=== PATIENT | female | born 1960 | race Caucasian/White ===

== ENCOUNTER 2020-06-27 11:22 | Outpatient (CLI) | payer OTHER, SELFPAY ==
--- NOTE | ~2020-06-27 | XR_ITS ---
XR lumbar spine 2-3V DATE: 06/27/2020 12:05 INDICATION: Back pain TECHNIQUE: AP, lateral, coned lateral lumbosacral views COMPARISON: None FINDINGS: There is moderate loss of height and anterior wedging of L1 due to burst fracture, likely c hronic. Diffuse osteopenia. Grade 1 anterolisthesis at L4-5 due to degenerative change at the apophyseal joints. Moderately severe degenerative disc disease at L5-S1. There is mild degenerative disc disease at the remaining lumbar interspaces. No recent fracture or bone destruction is evident. The included lower thoracic and lumbar pedicles ap pear intact. The sacroiliac joints appear normal. Abdominal aortic calcification. IMPRESSION: Probable chronic burst fracture deformity of L1 Grade 1 anterolisthesis at L4-5 due to degenerative change at the apophyseal joints Degenerative disc disease, most pronounced at L5-S1 Reviewed, dictated and finalized at location B. RECEIVER IMPRESSION: Probable chronic burst fracture deformity of L1 Grade 1 anterolisthesis at L4-5 due to degenerative change at the apophyseal yesi ints Degenerative disc disease, most pronounced at L5-S1
--- NOTE | ~2020-06-27 | XR_ITS ---
XR_CERV2-3V_CR DATE: 06/27/2020 12:05 INDICATION: Neck pain radiating to right shoulder. No known injury. TECHNIQUE: AP, lateral, open-mouth views COMPARISON: None FINDINGS: There is straightening of the cervical spine. C1 and C2 are normally aligned and the odontoid process appears intact. No fracture or dislocation or locked facet or prevertebral soft tissue swelling. There is mild degenerative disease at C4-5. There is severe degenerative disc disease at C5-6 and moderately severe degenerative disc disease at C6-7, with mild retrolisthesis at C6-7. Degenerative changes of apophyseal joints and uncovertebral joints is noted throughout the cervical s pine. IMPRESSION: Straightening of the cervical spine Extensive degenerative changes Reviewed, dictated and finalized at Location A. Reviewed, dictated and finalized at location B. ALS REFEREE
--- NOTE | ~2020-06-27 | XR_ITS ---
XR shoulder RT min 2V DATE: 06/27/2020 12:05 INDICATION: Right shoulder pain TECHNIQUE: 4 views COMPARISON: None FINDINGS: No fracture or dislocation, periosteal reaction or bone destruction or abnormal soft tissue calcification. IMPRESSION: No significant abnormality Reviewed, dictated and finalized at location B. INAL JUSTICE INSTRUCTOR IMPRESSION: No significant abnormality
== END 2020-06-27 11:23 | disposition home or self-care (01) ==
LOC: CHSIMG 11:26
PROVIDERS: PCP Nurse Practitioner Family; Visit Provider Nurse Practitioner Family
DX: M25.511 Pain in right shoulder (principal); M54.9 Dorsalgia, unspecified
CPT/HCPCS: 72040; 72100; 73030

== ENCOUNTER 2020-06-28 11:46 | Outpatient (CLI) | payer OTHER, SELFPAY ==
--- NOTE | ~2020-06-28 | DEXA_ITS ---
Bone Density Report Name: Kesha Garcia Age: 59 Sex: Female Ethnicity: White Date of : 1960 Indication: postmenopausal; screening for osteoporosis; height loss; prior fracture; Referring Provider: Elva Aiken Study: Bone densitometry was performed. Exam Date: June 28, 2020 Accession number: [id number] Bone Density: Region BMD T-score Z-score Classification AP Spine(L1-L4) 1.127 0.7 2.1 Normal Femoral Neck (Left) 0.923 0.7 1.9 Normal Total Hip (Left) 1.057 0.9 1.8 Normal Femoral Neck (Right) 1.000 1.4 2.6 Normal Total Hip (Right) 0.944 0.0 0.9 Normal Femoral Neck Mean 0.962 1.0 2.2 Normal Total Hip Mean 1.000 0.5 1.4 Normal World Health Organization criteria for BMD impression classify patients as: Normal (T-score at or above -1.0), Osteopenia (T-score between -1.0 and -2.5), or Osteoporosis (T-score at or below -2.5). 10-year Fracture Risk: FRAX not reported because: All T-scores for Spine Total, Hip Total, Femoral Neck at or above -1.0 Prior hip or vertebral fracture Clinical Information Provided by Patient: Have had a previous hip or vertebral fracture Has had a low trauma fracture Smokes Has 3 or more alcoholic drinks per day Patient maximum height was 64 Menopause Age: 53 No regular weight bearing exercise Does not regularly consume dairy products Drinks caffeinated beverages Onset of menses at age 13 Number of children 2 Impression: The patient has normal bone mass. The patient has risk factors, including: smoking, excessive alcohol use, previous fracture. Discussion: INCREASED RISK OF FRACTURE DUE TO HISTORY OF FRACTURE. The patient's previous fracture puts the patient at high risk of a future fracture. In untreated patients, the risk of osteoporotic fracture increases approximately two-fold for each 1.0 SD decrease in T-score. Low bone density is not the only risk factor for fracture; also consider factors such as patient's age, frailty or poor health, risk of falling, risk of injury, previous osteoporotic fracture, family history of osteoporosis, cigarette smoking, low body weight, etc. Not everyone with a low trauma fracture has osteoporosis; osteomalacia and other metabolic bone disorders should also be considered. Patients who have osteoporosis should be evaluated for specific diseases and conditions (secondary causes) that may cause or contribute to bone loss and fracture risk. National Osteoporosis Foundation (NOF) recommends pharmacologic intervention for patients with a prior hip or vertebral fracture regardless of BMD T-score. The patient should follow a healthful lifestyle (good nutrition with adequate calcium and vitamin D, and appropriate weight-bearing exercise). Follow-Up: Consider a repeat BMD and Vertebral Fractur
--- NOTE | ~2020-06-28 | US_ITS ---
EXAMINATION: US soft tissue lower back EXAM DATE: 06/28/2020 12:45 INDICATION: R22.2 - Localized swelling, mass and lump, trunk. Lower back lump. Symptoms 2 months TECHNIQUE: Multiple grayscale and Doppler images of the symptomatic low back region were obtained (by a technologist who performed the scan) and subsequently reviewed. There is no prior study for mariann avina. FINDINGS: At the palpable abnormality there is a heterogeneous mass measuring 3.0 x 1.3 x 3.5 cm. This may be w ithin the posterior paraspinal musculature. Most likely a lipoma but CT scan of the region (abdomen?) without contrast recommended. IMPRESSION: Nonspecific soft tissue mass, statistically most likely lipoma but CT recommended. Reviewed, dictated and finalized at location A. IST HELPER IMPRESSION: Nonspecific soft tissue mass, statistically most likely lipoma but CT recommend ed.
[2020-06-28 12:03] LABS: Hematocrit 35.6 % (35.0-49.0); Hemoglobin 12.5 g/dL (12.0-15.0); Mean Corpuscular HGB Conc 35.1 g/dL (32.0-36.0); Mean Corpuscular Hemoglobin 32.6 pg (27.0-31.0); Mean Platelet Volume 10.6 fl (9.2-11.8); Platelet Count Result 336 K/mm3 (150-420); Red Blood Count 3.83 M/mm3 (4.20-5.40); White Blood Count 4.3 K/mm3 (4.8-10.8)
[2020-06-28 12:40] LABS: Alanine Aminotransferase 17 U/L (14-59); Albumin Level 4.6 g/dL (3.4-5.0); Alkaline Phosphatase 85 U/L (46-116); Anion Gap 11 mmol/L (8-16); Aspartate Amino Transferase 13 U/L (15-37); Bilirubin,Total 0.5 mg/dL (0.00-1.00); Blood Urea Nitrogen 9 mg/dL (7-18); Calcium 9.7 mg/dL (8.5-10.1); Carbon Dioxide 27 mmol/L (21-32); Chloride 95 mmol/L (98-108); Cholesterol 264 mg/dL (0-200); Estimated Glomerular Filt Rate > 60; Glucose 105 mg/dL (70-99); HDL Direct 142 mg/dL (40-60); LDL Cholesterol Calculated 112 mg/dL (<130); Osmolality Calculated 274 mOsm/kg (285-295); Potassium 4.2 mmol/L (3.5-5.1); Sodium 133 mmol/L (136-145); Total Protein 7.9 g/dL (6.4-8.2); Triglycerides 50 mg/dL (0-150)
[2020-06-28 12:55] LABS: Band Neutrophils Percent 0 % (0-6); Basophils Absolute Manual 0.04 K/mm3 (0-0.1); Basophils Percent Manual 1 % (0-1); Eosinophils Percent Manual 0 % (1-6); Lymphocytes Absolute Manual 1.11 K/mm3 (1.1-4.5); Lymphocytes Percent Manual 26 % (18-44); Monocytes Absolute Manual 0.47 K/mm3 (0.1-0.90); Monocytes Percent Manual 11 % (3-9); Neutrophils Absolute Manual 2.66 K/mm3 (1.7-7.2); Neutrophils Percent Manual 62 % (46-73); Total Cells Counted 100
[2020-06-28 12:56] LABS: Platelet Estimate Adequate (Adequate)
== END 2020-06-28 11:47 | disposition home or self-care (01) ==
LOC: CHSIMG 11:49
PROVIDERS: PCP Nurse Practitioner Family; Visit Provider Nurse Practitioner Family
DX: R22.2 Localized swelling, mass and lump, trunk (principal); I10 Essential (primary) hypertension; M85.80 Other specified disorders of bone density and structure, unspecified site
CPT/HCPCS: 36415; 76705; 77080; 80053; 80061; 85025

== ENCOUNTER 2021-12-24 10:40 | Outpatient (CLI) | payer BC, SELFPAY ==
[2021-12-24 11:41] LABS: Influenza Control Valid (Valid)
[2021-12-24 12:03] LABS: SARS-CoV-2 RNA PCR Negative (Negative)
== END 2021-12-24 10:41 | disposition home or self-care (01) ==
LOC: CHSLAB 10:42
PROVIDERS: PCP Nurse Practitioner Family; Visit Provider Nurse Practitioner Family
DX: J06.9 Acute upper respiratory infection, unspecified (principal); Z20.822 Contact with and (suspected) exposure to COVID-19
CPT/HCPCS: 36415; 87804; C9803; U0003; U0005

== ENCOUNTER 2022-01-23 12:41 | Inpatient (IN) | payer OTHER, BC, SELFPAY ==
[2022-01-23] VITALS (30 sets, daily range): BP systolic 116–167; BP diastolic 69–118; PULSE 61–94; RESP 11–25; TEMP 36.2–36.4; O2SAT 98–100; BMI 19.5
--- NOTE | ~2022-01-23 | US_ITS ---
EXAMINATION: US carotid duplex BI DATE: 01/24/2022 12:00 INDICATION: Syncope. TECHNIQUE: Grayscale, color Doppler, and pulsed Doppler images of the cervical carotid arteries were obtained. The degree of vessel stenosis is placed in one of the following categories: normal, <50%, 5 0-69%, >=70% but less than near-occlusion, near-occlusion, or total occlusion. Note that percent sten osis relative to normal distal artery lumen diameter is indirectly measured from velocity measurement s as described by Amado, et al. Radiology 2003; 229:340-346. COMPARISON: None. FINDINGS: RIGHT: The right common carotid artery (CCA) peak systolic velocity (PSV) is 86 cm/s. The right internal car otid artery (ICA) PSV is 87 cm/s. The right ICA end-diastolic velocity (EDV) is 27 cm/s. The right IC A/CCA PSV ratio is 1.0. Grayscale and color Doppler images yield an estimate of <50% diameter reducti on from plaque in the ICA. There is antegrade flow in the right vertebral artery. LEFT: The left CCA PSV is 86 cm/s. The left ICA PSV is 90 cm/s. The left ICA EDV is 28 cm/s. The left ICA/C CA PSV ratio is 1.0. Grayscale and color Doppler images yield an estimate of <50% diameter reduction from plaque in the ICA. There is antegrade flow in the left vertebral artery. IMPRESSION: 1. <50% stenosis in the right internal carotid artery. 2. <50% stenosis in the left internal carotid artery. Reviewed, dictated and finalized at location A.
--- NOTE | ~2022-01-23 | CT_ITS ---
EXAMINATION: CT brain wo con DATE: 01/24/2022 15:51 INDICATION: syncope . TECHNIQUE: Computed tomography (CT) of the head was performed without intravenous contrast. The mA wa s adjusted according to patient size. Iterative reconstruction technique was employed. The dose-lengt h product was 605.33 mGy-cm. COMPARISON: None FINDINGS: No acute intracranial hemorrhage or extra-axial fluid collection. No hydrocephalus, mass, or herniation. No acute ischemic infarct. Unremarkable dural venous sinus attenuation. No acute osseous abnormality. Aerated secretions in the left maxillary sinus, as can be seen with acute sinusitis, otherwise the ae rated spaces are clear. Mild atrophy and chronic white matter change. Atherosclerotic intracranial calcification. IMPRESSION: No acute intracranial process. Reviewed, dictated and finalized at location K.
--- NOTE | ~2022-01-23 | XR_ITS ---
EXAMINATION: XR chest 1V portable 01/23/2022 13:21 INDICATION: Syncope PROCEDURE: AP portable chest COMPARISON: No prior studies for comparison. FINDINGS: The lungs are clear. The cardiomediastinal silhouette is within normal limits. There are no pleural effusions. There is no pneumothorax suspected. IMPRESSION: 1: NO ACUTE CARDIOPULMONARY DISEASE. Reviewed, dictated and finalized at location A.
--- NOTE | 2022-01-23 12:43 | ECG_ITS ---
Measurements Intervals [place] Rate: 68 P: 49 PA: 174 QRS: 38 QRSD: 82 T: 17 QT: 408 QTc: 436 Interpretive Statements SINUS RHYTHM NORMAL ELECTROCARDIOGRAM NO PREVIOUS ECG AVAILABLE FOR COMPARISON Electronically Signed On 01-23-2022 16:32:06 CDT by Adrian Lake M.D.
--- NOTE | 2022-01-23 12:54 | ED.GENADULT ---
HPI - General Adult General Chief complaint: Syncope Stated complaint: Syncopal episode Time Seen by Provider: 01/23/22 12:44 History of Present Illness HPI narrative: 61-year-old female with a past medical history of hypertension and GERD presents to the department via EMS after having a syncopal event at work. 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 There is no head or neck trauma. Patient did not experience any confusion upon waking but does state generalized weakness/feeling rundown. Related Data Home Medications Medication Instructions Recorded Confirmed lisinopril 40 mg tablet 40 mg PO DAILY 01/23/22 01/23/22 sertraline 25 mg tablet 25 mg PO HS 01/23/22 01/23/22 Allergies Allergy/AdvReac Type Severity Reaction Status Date / Time No Known Allergies Allergy Unknown Verified 12/24/21 15:07 Review of Systems Review of Systems: CONSTITUTIONAL: Denies fever, chills, or sweats. EYES: Denies visual changes, redness, or discharge. ENT: Denies rhinorrhea, congestion, sore throat, or otalgia. CARDIOVASCULAR: Denies chest pain, palpitations, or edema. RESPIRATORY: Denies cough or dyspnea. GASTROINTESTINAL: Denies abdominal pain, nausea, vomiting, or diarrhea. GENITOURINARY: Denies dysuria or hematuria. SKIN: Denies rash or itching. MUSCULOSKELETAL: Denies back pain, joint pain, or myalgia. NEUROLOGIC: Denies headache, numbness, or weakness. PSYCHIATRIC: Denies anxiety or depression. [facility] Past Medical History Medical History (Updated 01/24/22 @ 14:41 by Yadira Sebastian PA-C) Daily consumption of alcohol Depression Gastroesophageal reflux disease Generalized anxiety disorder Hypertension Nicotine dependence, cigarettes, uncomplicated Surgical History Surgical History No pertinent past surgical history Family History Family History Father Acute myocardial infarction Hypertension Mother Hypertension Sibling Hypertension Social History Social History (Updated 01/24/22 @ 14:42 by Yadira Sebastian PA-C) Social History: Surrogate medical decision maker: Patient does not name a surrogate decision maker at this time. Code status: Full code. Smoking packs per day: 0.75 Smoking cigarettes per day: 15.0 Years smoked: 35 Smoking pack-years: 26.25 Smoking status: Current every day smoker Tobacco type: cigarettes Alcohol intake: current Drinks per week: 35 Alcohol use details: Drinks on average 4 to 5 beers at night. Substance use: never Substance use type: does not use Spiritual care concerns: No Exam Narrative: GENERAL: Well-appearing, well-nourished, and in no acute distress. HEAD: Normocephalic, atraumatic. EYES: PERRLA and EOMI. ENT: Nares clear, no rhinorrhea or epistaxis. Mucous membranes dry. NECK: Supple. CHEST: Clear to auscultation. No respiratory distress. HEART: Regular rate and rhythm. No murmur heard. Normal peripheral pulses. ABDOMEN: Soft, nontender, nondistended, normal active bowel sounds. EXTREMITIES: Normal range of motion. No edema. SKIN: Warm, dry, no rash. NEURO: No focal deficits. Alert and oriented x3. PSYCH: Normal mood and affect. Course Vital Signs Vital signs: Vital Signs Temperature 97.2 F L 01/23/22 12:44 Pulse Rate 68 01/23/22 12:44 Respiratory Rate 14 01/23/22 12:44 Pulse Oximetry 100 01/23/22 12:44 Temperature 96.5 F L 01/26/22 14:00 Pulse Rate 79 01/26/22 14:00 Respiratory Rate 18 01/26/22 14:00 Blood Pressure 141/85 H 01/26/22 14:00 Pulse Oximetry 100 01/26/22 14:00 Oxygen Delivery Room Air 01/26/22 08:00 Medical Decision Making MDM Narrative Medical decision making narrative: Labs remarkable for hyponatremia with a sodi
[2022-01-23 13:06] LABS: Basophils Percent Auto 0.4 % (0.2-1.2); Eosinophils Percent Auto 0.1 % (0-4.4); Hematocrit 28.1 % (37.0-47.0); Immature Granulocyte Absolute 0.04 K/mm3 (0.00-0.031); Immature Granulocyte Percent A 0.6 % (0-0.5); Lymphocytes Percent Auto 8.5 % (18.3-44.2); Mean Corpuscular HGB Conc 35.6 g/dl (32-36); Mean Corpuscular Hemoglobin 32.5 pg (26-34); Mean Corpuscular Volume 91.2 fl (80-100); Mean Platelet Volume 9.7 fl (7.4-10.4); Monocytes Absolute Auto 0.6 K/mm3 (0.1-0.6); Monocytes Percent Auto 8.1 % (2.6-8.5); Neutrophils Absolute Auto 5.8 K/mm3 (1.3-6.7); Neutrophils Percent Auto 82.3 % (45.5-73.1); Platelet Count Result 348 k/mm3 (150-375); Red Blood Count 3.08 M/mm3 (4.2-5.4); Red Cell Distribution Width 13.2 % (11.5-14.5)
[2022-01-23 13:10] LABS: Alanine Aminotransferase 18 U/L (6-35); Albumin Level 4.9 g/dL (3.5-5.1); Alkaline Phosphatase 77 U/L (38-126); Anion Gap 12 mmol/L (8-16); Aspartate Amino Transferase 32 U/L (14-36); Bilirubin,Total 0.6 mg/dL (0.2-1.3); Blood Urea Nitrogen 18 mg/dL (7-17); Calcium 8.8 mg/dL (8.4-10.2); Carbon Dioxide 20 mmol/L (22-30); Chloride 85 mmol/L (98-107); Estimated CRCL calculation 41 ml/min; Estimated Glomerular Filt Rate 51; Glucose 162 mg/dL (65-110); Potassium 3.9 mmol/L (3.4-5.0); Sodium 117 mmol/L (137-145)
[2022-01-23] MEDS: SODIUM CHLORIDE 0.9% IV 1,000 ML 999 ML IV CONT (13:17)
[2022-01-23 14:46] LABS: SARS-CoV-2 RNA PCR Negative
--- NOTE | 2022-01-23 15:00 | PM.IMHP ---
H&P: HPI History of Present Illness Date/Time: 01/23/22 15:00 Chief Complaint: Syncope. Narrative: This is a 61-year-old female smoker with hypertension, GERD, anxiety, and daily alcohol use who presented to the emergency department via EMS from work for evaluation after syncopal episode. For the last few days she has been feeling a bit weak, tired, and lightheaded/dizzy upon standing. Her appetite has also been poor for about the last 1 week with nausea but no vomiting. Today while at work she began to feel nauseated, lightheaded, and sweaty. Her boss was nearby and slowly lowered her to the ground where she had a brief loss of consciousness. On arrival to the emergency department she was found to be profoundly hyponatremic with a sodium of 117 and a BUN and creatinine of 18 and 1.10 respectively. She was given a L of normal saline as a bolus and repeat labs demonstrated normalization of her creatinine and a sodium of 120. She has not had any recent change in medications but she is on hydrochlorothiazide and sertraline at home though she has taken those medications for many years. She admits that she does not eat very well, typically forgoing breakfast and lunch and only eating dinner. She drinks about 4 to 5 beers with dinner as well. Review of Systems Review of Systems: Twelve systems were reviewed. No recent cold or flu symptoms. No sick contacts. Weight has remained stable. No history of malignancy. She denies chest and pleuritic pain. No palpitations or sense of racing heart. No shortness of breath. Except as documented, all other systems were reviewed and are negative. [facility] Past Medical History Medical History (Updated 01/24/22 @ 14:41 by Yadira Sebastian PA-C) Daily consumption of alcohol Depression Gastroesophageal reflux disease Generalized anxiety disorder Hypertension Nicotine dependence, cigarettes, uncomplicated Surgical History Surgical History No pertinent past surgical history Family History Family History Father Acute myocardial infarction Hypertension Mother Hypertension Sibling Hypertension Social History Social History (Updated 01/24/22 @ 14:42 by Yadira Sebastian PA-C) Social History: Surrogate medical decision maker: Patient does not name a surrogate decision maker at this time. Code status: Full code. Smoking packs per day: 0.75 Smoking cigarettes per day: 15.0 Years smoked: 35 Smoking pack-years: 26.25 Smoking status: Current every day smoker Tobacco type: cigarettes Alcohol intake: current Drinks per week: 35 Alcohol use details: Drinks on average 4 to 5 beers at night. Substance use: never Substance use type: does not use Spiritual care concerns: No Meds Home Medications and Allergies Home Medications Medication Instructions Recorded Confirmed Type diclofenac sodium 50 mg 50 mg PO TID PRN pain #60 tabs 10/09/21 01/23/22 Rx tablet,delayed release omeprazole 40 mg capsule,delayed 40 mg PO BID #60 caps 01/21/22 01/23/22 Rx release famotidine 20 mg tablet 20 mg PO DAILY PRN gerd #30 tabs 01/22/22 01/23/22 Rx cyclobenzaprine 10 mg tablet 10 mg PO HS PRN muscle spasm 01/23/22 01/23/22 History hydrochlorothiazide 12.5 mg capsule 12.5 mg PO DAILY 01/23/22 01/23/22 History lisinopril 40 mg tablet 40 mg PO DAILY 01/23/22 01/23/22 History sertraline 25 mg tablet 25 mg PO HS 01/23/22 01/23/22 History Allergies Allergy/AdvReac Type Severity Reaction Status Date / Time No Known Allergies Allergy Unknown Verified 12/24/21 15:07 Vital Signs Vital Signs - 24 hr 01/23/22 12:44 01/23/22 12:46 01/23/22 13:04 Temperature 97.2 F L Pulse Rate 68 69 79 Respiratory Rate 14 Blood Pressure 116/69 Pulse Oximetry 100 Oxygen Delivery 01/23/22 13:04 01/23/22 13:06 01/23/22 13:22 Temperature Pulse Rate 79 90
--- NOTE | 2022-01-23 15:54 | ADMGEN ---
This patient, Kesha Garcia, was admitted to IMU Room 206-01. Patient/family oriented to hospital policies and general routines including ID bracelet, bed and alarms, visiting hours, pain management, procedures, bathroom and other care routines, personal items, smoking policy, room service/diet, and visiting hours. Information on how to activate the Rapid Response Team has been discussed. Patient/Family are encouraged to report perceived risks to care and to ask questions if they do not understand what they are told or what they should do.
[2022-01-23 16:06] LABS: Sodium Urine Random 82 meq/L
[2022-01-23 16:23] LABS: Basophils Percent Auto 0.3 % (0.2-1.2); Hematocrit 27.1 % (37.0-47.0); Hemoglobin 9.5 g/dL (12.0-15.0); Immature Granulocyte Absolute 0.07 K/mm3 (0.00-0.031); Immature Granulocyte Percent A 0.6 % (0-0.5); Lymphocytes Absolute Auto 0.58 K/mm3 (0.9-3.2); Lymphocytes Percent Auto 5.2 % (18.3-44.2); Mean Corpuscular HGB Conc 35.1 g/dl (32-36); Mean Corpuscular Hemoglobin 32.4 pg (26-34); Mean Corpuscular Volume 92.5 fl (80-100); Mean Platelet Volume 9.5 fl (7.4-10.4); Monocytes Absolute Auto 0.6 K/mm3 (0.1-0.6); Monocytes Percent Auto 5.8 % (2.6-8.5); Neutrophils Absolute Auto 9.8 K/mm3 (1.3-6.7); Neutrophils Percent Auto 88.1 % (45.5-73.1); Platelet Count Result 335 k/mm3 (150-375); Red Blood Count 2.93 M/mm3 (4.2-5.4); Red Cell Distribution Width 13.2 % (11.5-14.5); White Blood Count 11.1 K/mm3 (4.5-10.0)
[2022-01-23 16:34] LABS: Anion Gap 11 mmol/L (8-16); Blood Urea Nitrogen 17 mg/dL (7-17); Calcium 8.9 mg/dL (8.4-10.2); Carbon Dioxide 20 mmol/L (22-30); Chloride 89 mmol/L (98-107); Estimated CRCL calculation 46 ml/min; Estimated Glomerular Filt Rate > 60; Glucose 116 mg/dL (65-110); Potassium 4.3 mmol/L (3.4-5.0); Sodium 120 mmol/L (137-145)
[2022-01-23 16:36] LABS: Magnesium 1.8 mg/dL (1.6-2.3)
[2022-01-23 16:41] LABS: NT Pro B Type Natriuretic Pept 92 pg/mL (5-100); Troponin I < 0.012 ng/mL (0.000-0.034)
[2022-01-23 17:25] LABS: Thyroid Stimulating Hormone Reflex 0.847 uIU/mL (0.465-4.68)
[2022-01-23 21:00] LABS: Glucose Point of Care 120 mg/dl (65-105)
[2022-01-23 21:28] LABS: Sodium 124 mmol/L (137-145)
[2022-01-24] VITALS (19 sets, daily range): BP systolic 101–189; BP diastolic 62–92; PULSE 57–88; RESP 16–20; TEMP 36.3–36.9; O2SAT 98–100
[2022-01-24 01:16] LABS: Sodium 123 mmol/L (137-145)
[2022-01-24] MEDS: SERTRALINE HCL 25 MG TABLET PO ×2 (01:19→20:02)
[2022-01-24] MEDS: CYCLOBENZAPRINE HCL 10 MG TABLET PO ×2 (01:20→20:04)
[2022-01-24 01:41] LABS: Iron 71 ug/dL (37-170)
[2022-01-24 01:50] LABS: Percent Iron Saturation 25 % (20-50)
[2022-01-24 02:14] LABS: Thyroid Stimulating Hormone Reflex 0.825 uIU/mL (0.465-4.68)
[2022-01-24 02:48] LABS: Folic Acid 9.8 ng/mL (2.76->20)
[2022-01-24 05:04] LABS: Hematocrit 25.8 % (37.0-47.0); Mean Corpuscular HGB Conc 34.9 g/dl (32-36); Mean Corpuscular Hemoglobin 32.3 pg (26-34); Mean Corpuscular Volume 92.5 fl (80-100); Platelet Count Result 330 k/mm3 (150-375); Red Blood Count 2.79 M/mm3 (4.2-5.4); Red Cell Distribution Width 13.4 % (11.5-14.5); White Blood Count 4.7 K/mm3 (4.5-10.0)
[2022-01-24 05:16] LABS: Anion Gap 11 mmol/L (8-16); Blood Urea Nitrogen 17 mg/dL (7-17); Calcium 8.8 mg/dL (8.4-10.2); Carbon Dioxide 24 mmol/L (22-30); Chloride 93 mmol/L (98-107); Estimated CRCL calculation 51 ml/min; Estimated Glomerular Filt Rate > 60; Glucose 101 mg/dL (65-110); Magnesium 1.9 mg/dL (1.6-2.3); Potassium 3.8 mmol/L (3.4-5.0); Sodium 128 mmol/L (137-145)
[2022-01-24] MEDS: lisinopriL 20 MG TABLET 40 MG PO (09:36)
[2022-01-24] MEDS: PANTOPRAZOLE 40 MG TABLET PO ×2 (09:36→20:02)
[2022-01-24 10:10] LABS: Sodium 126 mmol/L (137-145)
[2022-01-24] MEDS: FAMOTIDINE 20 MG TABLET PO (10:18)
--- NOTE | 2022-01-24 10:59 | PM.IMPN ---
Progress Note: A&P Assessment and Plan (1) Hyponatremia: Code(s): E87.1 - Hypo-osmolality and hyponatremia Status: Acute Assessment and Plan: Likely due to a combination of low solute intake, beer potomania, and thiazide diuretic use. Sodium has improved after receiving 1 L of normal saline and she appears euvolemic at this time and we will schedule no further fluids. I do not feel there is a need to fluid restrict given improvements in sodium. Hydrochlorothiazide will be discontinued. I will continue with sertraline as she has been on that for many years. (2) Syncopal episodes: Code(s): R55 - Syncope and collapse Status: Acute Assessment and Plan: I suspect she was probably orthostatic and we will check orthostatic vital signs Q shift. Initiate fall precautions. Monitor on telemetry overnight to rule out cardiac dysrhythmia. (3) Daily consumption of alcohol: Code(s): Z78.9 - Other specified health status Status: Acute Assessment and Plan: She denies ever having signs or symptoms of alcohol withdrawal. Monitor closely with [place]. (4) Anemia: Code(s): D64.9 - Anemia, unspecified Status: Acute Assessment and Plan: May be nutritional. Check iron studies. Additional Plan 01/24/2022 Sodium is still low. Will consult Nephrology. Plan is to continue to monitor patient very closely. Repeat labs in the morning. Subjective Date/time seen: 01/24/22 10:59 Patient was seen during the morning rounds today. Patient is slightly more alert. Denies any shortness of breath or chest pain. No passing out. No abdominal pain, no nausea, no vomiting. Mood stable. Review of Systems Review of Systems: All systems reviewed & are unremarkable except as noted in HPI and below (the history and physical exam.) Exam Narrative: General: Well-developed female sitting up in bed in no distress. Weight: 50 kg. BMI: 19.5. HEENT: PERRL, EOMI. Conjunctivae anicteric. Oral mucosa is moist. Neck: Supple. No obvious thyromegaly. Respiratory: Lungs are clear to auscultation bilaterally. Cardiovascular: Regular rate and rhythm with S1-S2. Gastrointestinal: Abdomen is soft, nontender, and nondistended with positive bowel sounds. No organomegaly. Skin: Warm and dry. No rash or lesions on limited exam. Extremities: No cyanosis, clubbing, or edema. Radial and pedal pulses intact. Neurological: Alert. Cranial nerves 2-12 are grossly intact. No gross focal deficits to casual conversation. Psychiatric: Pleasant and cooperative. Appropriate mood and affect. Objective Data Vital Signs Vital Signs: Vital Signs - 24 hr 01/23/22 12:44 01/23/22 12:46 01/23/22 13:04 Temperature 36.2 C L Pulse Rate 68 69 79 Pulse Rate [Bilateral Pedal (Dorsalis Pedis) Palpation] Pulse Rate [Monitor] Respiratory Rate 14 Blood Pressure 116/69 Pulse Oximetry 100 Oxygen Delivery 01/23/22 13:04 01/23/22 13:06 01/23/22 13:22 Temperature Pulse Rate 79 90 Pulse Rate [Bilateral Pedal (Dorsalis Pedis) Palpation] Pulse Rate [Monitor] Respiratory Rate Blood Pressure 118/69 145/86 H Pulse Oximetry 100 Oxygen Delivery Room Air 01/23/22 13:09 01/23/22 13:15 01/23/22 13:30 Temperature Pulse Rate 90 71 67 Pulse Rate [Bilateral Pedal (Dorsalis Pedis) Palpation] Pulse Rate [Monitor] Respiratory Rate 23 H 13 15 Blood Pressure 145/86 H Pulse Oximetry 100 100 100 Oxygen Delivery 01/23/22 13:31 01/23/22 13:45 01/23/22 13:46 Temperature Pulse Rate 68 69 71 Pulse Rate [Bilateral Pedal (Dorsalis Pedis) Palpation] Pulse Rate [Monitor] Respiratory Rate 13 13 13 Blood Pressure 119/72 132/79 Pulse Oximetry 100 100 100 Oxygen Delivery 01/23/22 14:08 01/23/22 14:15 01/23/22 14:16 Temperature Pulse Rate 72 65 68 Pulse Rate [Bilateral Pedal (Dorsalis Pedis) Palpation] Pulse Rate [Monitor] Respiratory Rate 14 1
[2022-01-24] MEDS: SODIUM CHLORIDE 0.9% IV 1,000 ML 50 ML IV CONT (11:54)
[2022-01-24 12:07] LABS: Troponin I < 0.012 ng/mL (0.000-0.034)
[2022-01-24] MEDS: DICLOFENAC SOD 25 MG TABLET.EC 50 MG PO ×2 (12:34→20:03)
--- NOTE | 2022-01-24 13:00 | PM.CNNEP ---
Assessment and Plan Additional Plan 1. Kesha has hyponatremia. Looking back in the records, her sodium level was slightly low in June of 2020 with a level of 133. We do not have any records between then and this admission. Her TSH is normal. The chest x-ray is negative. The patient has multiple issues that might lead to low sodium. She is probably a little bit dehydrated. Her urine sodium was not low but she was on hydrochlorothiazide. She certainly has not been eating very well for the last week. The imbalance of her salt intake plus water has probably contributed to her low sodium as well. She is on hydrochlorothiazide and sertraline both of which can lower the sodium. She does not have an active history of cancer however she should work to get up-to-date with her cancer surveillance. Chest x-ray was negative. CT brain has been ordered. Her sodium corrected quickly with normal saline and holding her hydrochlorothiazide. It was just a little bit too quick. Her admission sodium was 117 and peaked at 1:28 a.m. before 24hours had elapsed. Her repeat was 126 at 9 this morning. Will check another right now to see if it has come down on its own to below 125. If so were okay as that would be goal. If not I will give does more press and DDAVP to get the sodium level down. If the sodium level is below 125 then I will change her IV fluids to half-normal saline to keep the sodium from rising too quickly going forward. 2. Anxiety. The patient is still on her sertraline. I think that is okay but I will put her on a fluid restriction. 3. Reflux. She is taking famotidine for this. 4. Hypertension. The patient's blood pressure is up and down. Currently it is under good control. Will continue current regimen. Continue to hold the hydrochlorothiazide though. 5. The patient smokes. I encouraged her to stop smoking. 6. The patient drinks alcohol. This is more than she should be drinking. I asked her to cut back to 1 or 2 beers per day at the most. This would also help with her sodium anyway. History of Present Illness Reason for Consult Consult date: 01/24/22 Chief Complaint Chief complaint: hypokalemia History of Present Illness Narrative: Kesha is a very pleasant 61-year-old lady who has multiple medical problems including hypertension, GERD, anxiety, nicotine dependence, every day alcohol user. The patient was at work and was lightheaded upon standing. She had a mild syncopal episode after her boss had let her down gently to the floor. She came to the emergency room she was found to have a sodium of 117 and that she was dehydrated. She was given some IV fluids overnight and her sodium corrected to 128. Repeat was 126. Consultation was requested. She says that she does not drink a whole lot of water at home but she does drink some ice tea and her drinks about 5 beers per day. She normally eats pretty well but for the last week she has had a flare of her reflux esophagitis. So she has not eaten well at all. She has hypertension and she is on lisinopril plus hydrochlorothiazide for this. She has some anxiety and so is on sertraline. She has had multiple colonoscopy showing polyps but she has not had 1 in about 15 years. She was supposed to have 1 about 10 years ago. She has no history of pulmonary issues although she does smoke. 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 She has no history of cancer. Review of Systems Constitutional: Constitutional: Reports no additional constitutional complaints Eyes: Eyes: Reports no additional eye complaints ENT: Reports system reviewed and no additional complaints, except as documented Cardiovascular: Cardiovascular: Reports no additional cardiovascular complaints Respiratory: Respiratory: Reports no additional respiratory complaints Gastrointestinal: Gastrointestinal: Reports no additional gastrointestinal complaints Genitourinary: Genitourinary: Reports no additional female genit
[2022-01-24 13:58] LABS: Sodium 122 mmol/L (137-145)
[2022-01-24 14:33] LABS: Cortisol Random 8.98 ug/dL
[2022-01-24] MEDS: NICOTINE (*PBKC) 21 MG PATCH 1 PATCH TRANSDERM (16:23)
[2022-01-24 17:52] LABS: Sodium 124 mmol/L (137-145)
[2022-01-24 20:20] LABS: Sodium 125 mmol/L (137-145)
[2022-01-25] VITALS (14 sets, daily range): BP systolic 96–146; BP diastolic 62–91; PULSE 59–103; RESP 12–18; TEMP 35.8–36.8; O2SAT 100
[2022-01-25] MEDS: ZOLPIDEM TARTRATE (*CRX) 5 MG TABLET PO (00:58)
[2022-01-25 01:14] LABS: Sodium 122 mmol/L (137-145)
[2022-01-25 05:06] LABS: Alanine Aminotransferase 14 U/L (6-35); Albumin Level 4.2 g/dL (3.5-5.1); Alkaline Phosphatase 65 U/L (38-126); Anion Gap 7 mmol/L (8-16); Aspartate Amino Transferase 25 U/L (14-36); Bilirubin,Total 0.3 mg/dL (0.2-1.3); Blood Urea Nitrogen 22 mg/dL (7-17); Calcium 9.1 mg/dL (8.4-10.2); Carbon Dioxide 22 mmol/L (22-30); Chloride 94 mmol/L (98-107); Estimated CRCL calculation 41 ml/min; Estimated Glomerular Filt Rate 57; Glucose 100 mg/dL (65-110); Potassium 3.9 mmol/L (3.4-5.0); Sodium 123 mmol/L (137-145)
[2022-01-25 05:10] LABS: Hematocrit 26.7 % (37.0-47.0); Hemoglobin 9.3 g/dL (12.0-15.0); Mean Corpuscular HGB Conc 34.8 g/dl (32-36); Mean Corpuscular Hemoglobin 32.2 pg (26-34); Mean Corpuscular Volume 92.4 fl (80-100); Platelet Count Result 334 k/mm3 (150-375); Red Blood Count 2.89 M/mm3 (4.2-5.4); Red Cell Distribution Width 13.4 % (11.5-14.5); White Blood Count 4.5 K/mm3 (4.5-10.0)
[2022-01-25] MEDS: lisinopriL 20 MG TABLET 40 MG PO (09:00)
[2022-01-25] MEDS: PANTOPRAZOLE 40 MG TABLET PO ×2 (09:00→20:03)
[2022-01-25] MEDS: FAMOTIDINE 20 MG TABLET PO (09:01)
[2022-01-25] MEDS: NICOTINE (*PBKC) 21 MG PATCH 1 PATCH TRANSDERM (09:02)
[2022-01-25] MEDS: ACETAMINOPHEN 325 MG TABLET 650 MG PO (09:30)
[2022-01-25 09:43] LABS: Sodium 126 mmol/L (137-145)
[2022-01-25] MEDS: COSYNTROPIN 0.25 MG/ML VIAL IV PUSH (09:47)
--- NOTE | 2022-01-25 10:34 | PM.PNNEP ---
Progress Note: A&P Additional Plan 1. Kesha has hyponatremia. Looking back in the records, her sodium level was slightly low in June of 2020 with a level of 133. We do not have any records between then and this admission. Her TSH is normal. The chest x-ray is negative. Cortisol level is low. Cortrosyn stim test ordered. SPEP is pending. No history of cancer. Cancer surveillance however is not up-to-date. Most likely low sodium due to hydrochlorothiazide and sertraline. She also was drinking fluids but not eating. Sodium was 117 on admission. Then it over corrected and return to about 122 spontaneously. Now the sodium is 126. She is on a 1000cc fluid restriction. Will check another level this afternoon and see if she continues to correct. She is making more urine. If not consider Lasix and salt tablets. 2. Anxiety. The patient is still on her sertraline. I think that is okay but I will put her on a fluid restriction. 3. Reflux. She is taking famotidine for this. 4. Hypertension. Systolic is doing pretty well right now between 110 and 140. Will restart her lisinopril. 5. The patient smokes. I encouraged her to stop smoking. 6. The patient drinks alcohol. This is more than she should be drinking. I asked her to cut back to 1 or 2 beers per day at the most. This would also help with her sodium as well. Subjective Date/time seen: 01/25/22 10:34 Interval history: Kesha is feeling a little bit better today. Eating fairly well. No chest pain or shortness of breath Review of Systems Cardiovascular: Cardiovascular: Reports no additional cardiovascular complaints Respiratory: Respiratory: Reports no additional respiratory complaints Gastrointestinal: Gastrointestinal: Reports no additional gastrointestinal complaints Genitourinary: Genitourinary: Reports no additional female genitourinary complaints Exam Narrative: WDWN in NAD skin no rash head ncat lungs clear cor reg no rub abd BS+ nontender and soft ext no edema. Objective Data Vital Signs Vital Signs: Vital Signs - 24 hr 01/24/22 11:57 01/24/22 12:00 01/24/22 12:00 Temperature 36.9 C Pulse Rate 72 80 Pulse Rate [Monitor] Respiratory Rate 16 Blood Pressure 124/81 Pulse Oximetry 98 100 Oxygen Delivery Room Air 01/24/22 12:00 01/24/22 12:00 01/24/22 14:00 Temperature Pulse Rate 78 Pulse Rate [Monitor] 80 Respiratory Rate Blood Pressure Pulse Oximetry 100 Oxygen Delivery Room Air 01/24/22 16:00 01/24/22 16:00 01/24/22 16:00 Temperature Pulse Rate 64 Pulse Rate [Monitor] 80 Respiratory Rate Blood Pressure Pulse Oximetry 100 Oxygen Delivery Room Air 01/24/22 16:00 01/24/22 18:00 01/24/22 20:00 Temperature 36.6 C 36.7 C Pulse Rate 66 82 80 Pulse Rate [Monitor] Respiratory Rate 16 16 Blood Pressure 130/73 101/62 Pulse Oximetry 100 100 Oxygen Delivery 01/24/22 20:00 01/24/22 20:09 01/24/22 20:09 Temperature 36.7 C Pulse Rate 80 Pulse Rate [Monitor] Respiratory Rate 16 Blood Pressure 101/62 115/70 115/82 Pulse Oximetry 100 Oxygen Delivery 01/24/22 19:56 01/24/22 19:56 01/24/22 20:00 Temperature Pulse Rate 80 88 Pulse Rate [Monitor] 80 Respiratory Rate 16 Blood Pressure 115/82 Pulse Oximetry 100 Oxygen Delivery Room Air 01/24/22 22:00 01/24/22 23:28 01/24/22 23:18 Temperature 36.3 C L Pulse Rate 71 69 Pulse Rate [Monitor] 69 Respiratory Rate 20 Blood Pressure 118/69 118/69 Pulse Oximetry 100 Oxygen Delivery 01/24/22 23:18 01/25/22 00:00 01/25/22 01:39 Temperature Pulse Rate 69 59 L 59 L Pulse Rate [Monitor] Respiratory Rate 20 Blood Pressure Pulse Oximetry 100 Oxygen Delivery Room Air 01/25/22 04:00 01/25/22 04:00 01/25/22 04:00 Temperature 36.2 C L Pulse Rate 63 63 Pulse Rate [Monitor] 63 Respiratory Rate 16 16 Blood Pressure 96/62 L 96/62 L Pu
--- NOTE | 2022-01-25 11:00 | PM.IMPN ---
Progress Note: A&P Assessment and Plan (1) Hyponatremia: Code(s): E87.1 - Hypo-osmolality and hyponatremia Status: Acute Assessment and Plan: Likely due to a combination of low solute intake, beer potomania, and thiazide diuretic use. She might be a bit dry as well given poor oral intake the last week. Sodium has improved after receiving 1 L of normal saline and she appears euvolemic at this time and for now we will schedule no further fluids and trend her sodium to see how she responds. Hydrochlorothiazide will be discontinued. Continue sertraline for now as she has been on that for many years. (2) Syncopal episodes: Code(s): R55 - Syncope and collapse Status: Acute Assessment and Plan: I suspect she was probably orthostatic and we will check orthostatic vital signs. Initiate fall precautions. Monitor on telemetry overnight to rule out cardiac dysrhythmia. Carotid Dopplers and echocardiogram have been ordered for further workup. (3) Daily consumption of alcohol: Code(s): Z78.9 - Other specified health status Status: Acute Assessment and Plan: She denies ever having signs or symptoms of alcohol withdrawal. Monitor closely with [facility]. (4) Anemia: Code(s): D64.9 - Anemia, unspecified Status: Acute Assessment and Plan: May be nutritional. Check iron studies. Additional Plan 01/2022 Sodium is still low. imroving though. Will consult Nephrology. Plan is to continue to monitor patient very closely. Repeat labs in the morning. Subjective Date/time seen: 01/25/22 11:00 Patient was seen during the morning rounds today. Patient is feeling slightly better. No chest pain or shortness of breath. No abdominal Pain, no nausea, no vomiting. Mood stable. Review of Systems Review of Systems: All systems reviewed & are unremarkable except as noted in HPI and below (the history and physical exam.) Exam Narrative: General: Well-developed female sitting up in bed in no distress. Weight: 50 kg. BMI: 19.5. HEENT: PERRL, EOMI. Conjunctivae anicteric. Oral mucosa is moist. Neck: Supple. No obvious thyromegaly. Respiratory: Lungs are clear to auscultation bilaterally. Cardiovascular: Regular rate and rhythm with S1-S2. Gastrointestinal: Abdomen is soft, nontender, and nondistended with positive bowel sounds. No organomegaly. Skin: Warm and dry. No rash or lesions on limited exam. Extremities: No cyanosis, clubbing, or edema. Radial and pedal pulses intact. Neurological: Alert. Cranial nerves 2-12 are grossly intact. No gross focal deficits to casual conversation. Psychiatric: Pleasant and cooperative. Appropriate mood and affect. Objective Data Vital Signs Vital Signs: Vital Signs - 24 hr 01/24/22 11:57 01/24/22 12:00 01/24/22 12:00 Temperature 36.9 C Pulse Rate 72 80 Pulse Rate [Monitor] Respiratory Rate 16 Blood Pressure 124/81 Pulse Oximetry 98 100 Oxygen Delivery Room Air 01/24/22 12:00 01/24/22 12:00 01/24/22 14:00 Temperature Pulse Rate 78 Pulse Rate [Monitor] 80 Respiratory Rate Blood Pressure Pulse Oximetry 100 Oxygen Delivery Room Air 01/24/22 16:00 01/24/22 16:00 01/24/22 16:00 Temperature Pulse Rate 64 Pulse Rate [Monitor] 80 Respiratory Rate Blood Pressure Pulse Oximetry 100 Oxygen Delivery Room Air 01/24/22 16:00 01/24/22 18:00 01/24/22 20:00 Temperature 36.6 C 36.7 C Pulse Rate 66 82 80 Pulse Rate [Monitor] Respiratory Rate 16 16 Blood Pressure 130/73 101/62 Pulse Oximetry 100 100 Oxygen Delivery 01/24/22 20:00 01/24/22 20:09 01/24/22 20:09 Temperature 36.7 C Pulse Rate 80 Pulse Rate [Monitor] Respiratory Rate 16 Blood Pressure 101/62 115/70 115/82 Pulse Oximetry 100 Oxygen Delivery 01/24/22 19:56 01/24/22 19:56 01/24/22 20:00 Temperature Pulse Rate 80 88 Pulse Rate [Monitor] 80 Respiratory Rate
[2022-01-25 16:05] LABS: Sodium 125 mmol/L (137-145)
[2022-01-25] MEDS: FUROSEMIDE 20 MG TABLET PO (17:49)
[2022-01-25] MEDS: SODIUM CHLORIDE 1 GM TABLET PO (17:49)
--- NOTE | 2022-01-25 18:46 | PC.NURSE ---
This patient, Kesha Garcia, was received from IMU on 01/25/22 at 1845. Patient oriented to unit policies and routines.
--- NOTE | 2022-01-25 19:25 | PC.NURSE ---
This patient, Kesha Garcia, was transferred to [[facility] ] on 01/25/22 at 1844. Personal belongings sent with patient. Report given to [Giulia ]. Appropriate documentation sent with patient.
[2022-01-25] MEDS: SERTRALINE HCL 25 MG TABLET PO (20:02)
[2022-01-25] MEDS: CYCLOBENZAPRINE HCL 10 MG TABLET PO (20:07)
[2022-01-25] MEDS: DICLOFENAC SOD 25 MG TABLET.EC 50 MG PO (20:10)
[2022-01-25 20:13] LABS: Sodium 128 mmol/L (137-145)
--- NOTE | 2022-01-26 | ECHO_ITS ---
Patient Info Name: Kesha Garcia Age: 61 years : 1960 Gender: Female Ht: 63 in Wt: 108 lbs BSA: 1.47 m2 HR: 60 bpm BP: 124 / 77 mmHg Heart Rhythm: Sinus Rhythm Technical Quality: Good Exam Date: 01/26/2022 10:15 AM Exam Location: [facility] Card Pulmonary Exam Room: 325 Patient Status: Inpatient Admit Date: 01/23/2022 Staff Ordering Physician: Thien Branham MD Garbage Truck Dispatcher: Anita Gaona RDCS Attending Provider: Bridget Parry MD Referring Physician: Yonas PARK; Exam Type: CA echo doppler color flow Study Info Indications R55 - Syncope and collapse Complete two-dimensional, color flow and Doppler transthoracic echocardiogram is performed. Summary 1. Complete two-dimensional, color flow and Doppler transthoracic echocardiogram is performed. 2. Left ventricular hypertrophy with hyperdynamic systolic contractility and grade 1 diastolic noncompliance. 3. Redundant/aneurysmal atrial septum. Left Ventricle Left ventricular chamber dimension is normal. Left ventricular systolic function is hyperdynamic, estimated at >70%. There is mild concentric increased left ventricular wall thickness. The left ventricular diastolic function is grade I diastolic dysfunction. Right Ventricle Right ventricular chamber dimension is normal. Left Atria Left atrial chamber dimension is normal. Right Atria Right atrial chamber dimension is normal. Aortic Valve The aortic valve is normal. Pulmonic Valve The pulmonic valve is not well visualized. Mitral Valve The mitral valve has normal leaflets. Tricuspid Valve The tricuspid valve leaflets are normal. Pericardium/Pleural The pericardium appears normal. Aorta The aortic root size at the sinus of Valsalva is normal. Left Ventricular Outflow Tract Name Value Normal LVOT 2D LVOT Diameter 2.0 cm LVOT Doppler LVOT Peak Gradient 6 mmHg LVOT Mean Gradient 3 mmHg LVOT VTI 21 cm LVOT VTI/AV VTI Ratio 0.9 LVOT Stroke Volume 64 ml LVOT CO 14.4 l/min LVOT CI 9.8 l/min/m2 Pulmonic Valve Name Value Normal PV Doppler PV Peak Gradient 4 mmHg Mitral Valve Name Value Normal MV Doppler MV Decel [place] 361 cm/s2 MV PHT 47 ms MV Area (PHT) 4.7 cm2 4.0-5.0 MV Diastolic Function
[2022-01-26 06:00] VITALS: BP 124/77; PULSE 60; RESP 16; TEMP 35.8; O2SAT 100
[2022-01-26 06:49] LABS: Alanine Aminotransferase 17 U/L (6-35); Albumin Level 4.2 g/dL (3.5-5.1); Alkaline Phosphatase 63 U/L (38-126); Anion Gap 9 mmol/L (8-16); Aspartate Amino Transferase 20 U/L (14-36); Bilirubin,Total 0.3 mg/dL (0.2-1.3); Blood Urea Nitrogen 22 mg/dL (7-17); Calcium 8.8 mg/dL (8.4-10.2); Carbon Dioxide 24 mmol/L (22-30); Chloride 96 mmol/L (98-107); Estimated CRCL calculation 36 ml/min; Estimated Glomerular Filt Rate 46; Glucose 111 mg/dL (65-110); Phosphorus 4.9 mg/dL (2.5-4.5); Potassium 4.1 mmol/L (3.4-5.0); Sodium 129 mmol/L (137-145)
[2022-01-26 08:00] VITALS: BP 152/85; PULSE 85; RESP 18; TEMP 35.9; O2SAT 100
[2022-01-26] MEDS: PANTOPRAZOLE 40 MG TABLET PO (09:38)
[2022-01-26] MEDS: FAMOTIDINE 20 MG TABLET PO (09:39)
[2022-01-26] MEDS: lisinopriL 20 MG TABLET 40 MG PO (09:39)
[2022-01-26] MEDS: FUROSEMIDE 20 MG TABLET PO ×3 (09:39→16:29)
[2022-01-26] MEDS: SODIUM CHLORIDE 1 GM TABLET PO ×3 (09:40→16:28)
[2022-01-26] MEDS: NICOTINE (*PBKC) 21 MG PATCH 1 PATCH TRANSDERM (09:40)
[2022-01-26 10:39] LABS: Sodium 127 mmol/L (137-145)
[2022-01-26 11:07] VITALS: BP 127/87; BP 144/89
[2022-01-26 14:00] VITALS: BP 141/85; PULSE 79; RESP 18; TEMP 35.8; O2SAT 100
[2022-01-26 14:08] LABS: Sodium 129 mmol/L (137-145)
--- NOTE | 2022-01-26 16:48 | PM.DS ---
DS: Admitting Diagnosis Discharge Date 01/26/22 Admitting Diagnosis Syncope DS: Discharge Diagnosis Discharge Diagnosis (1) Hyponatremia: Code(s): E87.1 - Hypo-osmolality and hyponatremia Status: Acute (2) Syncopal episodes: Code(s): R55 - Syncope and collapse Status: Acute (3) Daily consumption of alcohol: Code(s): Z78.9 - Other specified health status Status: Acute (4) Anemia: Code(s): D64.9 - Anemia, unspecified Status: Acute DS: Summary Hospital Course Reason for hospitalization: 61yo female smoker with hypertension, GERD, anxiety, and daily alcohol use who presented to the emergency department via EMS from work for evaluation after syncopal episode. Please see H&P for details Hospital Course: Likely due to a combination of low solute intake, beer potomania, and thiazide diuretic use. She might be a bit dry as well given poor oral intake the last week. [place] syncope related to the hyponatremia and possibly dehydration. Sodium improved after receiving normal saline then fluid restriction. HCTZ stopped. Sertraline was low dose and continued. NaCl tablets and Lasix added. Nephrology was consulted and appreciate their input. She was educated about the benefits of abstaining from alcohol and tobacco use. EKG was normal. COVID negative. Chest x-ray was clear. CT of the brain showed no acute findings. Carotid ultrasound showed less than 50% stenosis in the bilateral internal carotid arteries. Echo showing LVH with hyperdynamic systolic contractility and grade 1 diastolic noncompliance. Redundant/aneurysmal atrial septum. She was anemic. Normal cortisol stimulation test. Cr slightly elevated on admission before improving. Cr did bump up at discharge so Lasix cut back. She feels much better. She is requesting discharge. She overall did well and was discharged home on 01/26/22 Status at Discharge Cognitive/behavioral status at discharge: Stable Time Spent with Patient Time attestation: Total time spent providing and/or coordinating discharge services: 35 minutes Time spent: Greater than 30 minutes Exam Narrative: AF 96.5 141/85 79 18 100% ra Gen - NARD Chest - CTA bilaterally, nml RR CV - RRR S1/S2 Abd - Soft, NT/ND, Positive BS Ext - No pedal edema Neuro - Alert and oriented. Nonfocal exam. Psych - Nml mood and affect Skin - Warm and dry DS: Data Data Completed and Pending Labs on day of discharge: Labs from last 24 hours 01/26/22 01/26/22 01/26/22 13:45 10:15 06:14 Sodium 129 L 127 L 129 L Potassium 4.1 Chloride 96 L Carbon Dioxide 24 Anion Gap 9 BUN 22 H Creatinine 1.20 H Estim Creat Clear Calc 36 Estimated GFR 46 L Glucose 111 H Calcium 8.8 Phosphorus 4.9 H Total Bilirubin 0.3 AST 20 ALT 17 Alkaline Phosphatase 63 Total Protein 7.0 Albumin 4.2 01/25/22 19:54 Sodium 128 L Potassium Chloride Carbon Dioxide Anion Gap BUN Creatinine Estim Creat Clear Calc Estimated GFR Glucose Calcium Phosphorus Total Bilirubin AST ALT Alkaline Phosphatase Total Protein Albumin Discharge Plan Discharge Attending physician on discharge: Nicolas Mg Consulting providers: Carter Plascencia Discharging Clinician: Nicolas Mg Anticipated Discharge Date/Time: 01/26/22 17:03 Patient Disposition: Home, Self-Care Activity: as tolerated Diet: regular Discharge Instructions: Continue fluid restriction of 1500 mL per day. Please stop all alcohol and tobacco use. Take precautions to avoid falls. Rise slowly from a lying or sitting position. Pause before standing or walking. Contact your doctor or call 911 and come to the Emergency Room if you have lightheadedness with standing or other worrisome symptoms. Avoid NSAIDs (ibuprofen, naproxen, Aleve). Tylenol is safe to take. Follow-up with your doctor in 1-2 weeks. Please call fo
--- NOTE | 2022-01-26 16:50 | PM.PNNEP ---
Progress Note: A&P Additional Plan 1. Kesha has hyponatremia. Looking back in the records, her sodium level was slightly low in June of 2020 with a level of 133. We do not have any records between then and this admission. Her TSH is normal. The chest x-ray is negative. Cortisol level is low. Cortrosyn stim test ordered. SPEP is pending. No history of cancer. Cancer surveillance however is not up-to-date. Most likely low sodium due to hydrochlorothiazide and sertraline. She also was drinking fluids but not eating. Sodium was 117 on admission. Then it over corrected and return to about 122 spontaneously. Now the sodium is 126. She is on a 1000cc fluid restriction. Will check another level this afternoon and see if she continues to correct. She is making more urine. If not consider Lasix and salt tablets. 2. Anxiety. The patient is still on her sertraline. I think that is okay but I will put her on a fluid restriction. 3. Reflux. She is taking famotidine for this. 4. Hypertension. Systolic is doing pretty well right now between 110 and 140. Will restart her lisinopril. 5. The patient smokes. I encouraged her to stop smoking. 6. The patient drinks alcohol. This is more than she should be drinking. I asked her to cut back to 1 or 2 beers per day at the most. This would also help with her sodium as well. Subjective Date/time seen: 01/26/22 15:50 Chart reviewed - assuming care from Dr. Plascencia; Exam Narrative: General: WD/WN female in NAD Heart: normal S1 and S2; no rub Lungs: clear to auscultation Abdomen: soft, nontender, nondistended, positive bowel sounds Extremities: no cyanosis or clubbing; no edema Skin: warm and dry Objective Data Vital Signs Vital Signs: Vital Signs Temp Pulse Resp BP Pulse Ox O2 Del Method 01/26/22 14:00 35.8 C L 79 18 141/85 H 100 01/26/22 11:07 127/87 01/26/22 11:07 144/89 H 01/26/22 08:00 35.9 C L 85 18 152/85 H 100 01/26/22 08:00 Room Air 01/26/22 06:00 35.8 C L 60 16 124/77 100 01/25/22 22:00 35.8 C L 80 18 118/72 100 01/25/22 20:10 103 H 18 120/91 H 100 01/25/22 20:05 85 18 130/80 100 01/25/22 20:00 35.8 C L 80 18 118/72 100 01/25/22 20:00 Room Air 01/25/22 19:03 36.3 C L 87 16 137/82 100 Intake/Output Intake/Output: Intake & Output 01/23/22 01/24/22 01/25/22 01/26/22 23:59 23:59 23:59 23:59 Intake Total 1000 1090 1082 716 Output Total 300 2500 2550 1900 Balance [phone] Meds/Results Medications: Active Medications Generic Name Dose Route Start Last Admin Trade Name Freq PRN Reason Stop Dose Admin Acetaminophen 650 mg 01/25/22 09:03 01/25/22 09:30 Acetaminophen 325 Mg Tablet PO 650 mg Q6H PRN Administration Headache Cyclobenzaprine HCl 10 mg 01/24/22 00:40 01/25/22 20:07 Cyclobenzaprine Hcl 10 Mg Tablet PO 10 mg HS PRN Administration muscle spasm Diclofenac Sodium 50 mg 01/24/22 12:13 01/25/22 20:10 Diclofenac Sod 25 Mg Tablet.Ec PO 50 mg TID PRN Administration pain Famotidine 20 mg 01/24/22 09:00 01/26/22 09:39 Famotidine 20 Mg Tablet PO 20 mg DAILY PRN Administration gerd Furosemide 20 mg 01/25/22 17:00 01/26/22 16:29 Furosemide 20 Mg Tablet PO 20 mg TIDWM JACKIE Administration Lisinopril 40 mg 01/24/22 09:00 01/26/22 09:39 Lisinopril 20 Mg Tablet PO 40 mg DAILY JACKIE Administration Nicotine 1 patch 01/24/22 14:10 01/26/22 09:40 Nicotine (*Pbkc) 21 Mg Patch TRANSDERM 1 patch QAM JACKIE Administration Pantoprazole Sodium 40 mg 01/24/22 09:00 01/26/22 09:38 Pantoprazole 40 Mg Tablet PO 40 mg Q12HR JACKIE Administration Sertraline HCl 25 mg 01/23/22 21:00 01/25/22 20:02 Sertraline Hcl 25 Mg Tablet PO 25 mg JACKIE Administration Sodium Chloride 1 gm 01/25/22 17:00 01/26/22 16:28 Sodium Chloride 1 Gm Tablet PO 1 gm
[2022-01-27 17:44] LABS: Albumin 4.2 g/dL (3.8-4.8); Alpha 1 Globulin 0.3 g/dL (0.2-0.3); Alpha 2 Globulin 0.7 g/dL (0.5-0.9); Beta 1 Globulin 0.4 g/dL (0.4-0.6); Gamma Globulin 0.8 g/dL (0.8-1.7); Protein, Total 6.6 g/dL (6.1-8.1)
--- NOTE | 2022-01-28 09:18 | PC.NURSE ---
SPEP- No M spike. Normal pattern.
[2022-01-28 16:42] LABS: Osmolality, Urine 309 mOsm/kg (50-1200)
== END 2022-01-26 17:48 | disposition home or self-care (01) | DRG 426 ==
LOC: ANHED 13:00 → ANHIMU 01-24 00:42 → ANH3MEDSUR 01-26 17:05 → ANHIMU 01-28 17:26
PROVIDERS: Emergency Medicine; Internal Medicine; Internal Medicine Nephrology; Physician Assistant; Admitting Provider Family Medicine; Emergency Provider Emergency Medicine; PCP Nurse Practitioner Family; Visit Provider Internal Medicine
DX: E87.1 Hypo-osmolality and hyponatremia (principal); F10.99 Alcohol use, unspecified with unspecified alcohol-induced disorder; E86.0 Dehydration; R55 Syncope and collapse; Z20.822 Contact with and (suspected) exposure to COVID-19; D64.9 Anemia, unspecified; F17.210 Nicotine dependence, cigarettes, uncomplicated; F32.A Depression, unspecified; F41.1 Generalized anxiety disorder; K21.9 Gastro-esophageal reflux disease without esophagitis; I10 Essential (primary) hypertension; Z86.010 Personal history of colon polyps
CPT/HCPCS: 36415; 70450; 71045; 80048; 80053; 82533; 82570; 82607; 82728; 82746; 82948; 83540; 83550; 83735; 83880; 83930; 83935; 84100; 84155; 84165; 84295; 84300; 84443; 84484; 85025; 85027; 93005; 93306; 93880; 96360; 99285; A9270; C9803; J0834; J7030; U0003; U0005

== ENCOUNTER 2022-02-26 10:14 | Outpatient (CLI) | payer BC, SELFPAY ==
[2022-02-26 10:51] LABS: Albumin Level 4.3 g/dL (3.4-5.0); Anion Gap 9 mmol/L (8-16); Blood Urea Nitrogen 14 mg/dL (7-18); Calcium 9.2 mg/dL (8.5-10.1); Carbon Dioxide 26 mmol/L (21-32); Chloride 97 mmol/L (98-108); Estimated Glomerular Filt Rate > 60; Glucose 102 mg/dL (70-99); Osmolality Calculated 274 mOsm/kg (285-295); Phosphorus 3.9 mg/dL (2.6-4.7); Potassium 3.9 mmol/L (3.5-5.1); Sodium 132 mmol/L (136-145)
== END 2022-02-26 10:15 | disposition home or self-care (01) ==
LOC: CHSLAB 10:16
PROVIDERS: PCP Nurse Practitioner Family; Visit Provider Internal Medicine
DX: E87.1 Hypo-osmolality and hyponatremia (principal)
CPT/HCPCS: 36415; 80069

== ENCOUNTER → 2023-01-03 11:02 | Outpatient (CLI) | payer OTHER, SELFPAY ==
--- NOTE | ~2023-01-03 | XR_ITS ---
XR knee RT 3V DATE: 01/03/2023 12:04 INDICATION: Right knee pain TECHNIQUE: 3 views of right knee COMPARISON: None FINDINGS: No fracture or dislocation or joint effusion. Joint spaces are well preserved. No radiopaqu e intra-articular loose body or, calcinosis. No periosteal reaction or bone destruction. IMPRESSION: Negative Reviewed, dictated and finalized at location A. IMPRESSION: Negative
--- NOTE | ~2023-01-03 | XR_ITS ---
XR hip RT min 2V DATE: 01/03/2023 12:04 INDICATION: Right hip pain TECHNIQUE: AP and lateral views of right hip COMPARISON: None FINDINGS: Severe degenerative disc disease is noted at L4-5 and L5-S1. Normal alignment at the pubic symphysis and sacroiliac joints. There is right hip joint space narrowing and prominent degenerative spurring consistent with moderate ly severe right hip osteoarthritis. No fracture or dislocation of the right hip is evident. No periosteal reaction or bone destruction. IMPRESSION: Moderately severe right hip osteoid arthritis Severe degenerative disc disease at L4-5 and L5-S1 Reviewed, dictated and finalized at location A.
== END ==
PROVIDERS: PCP Nurse Practitioner Family; Visit Provider Nurse Practitioner Family
DX: M25.561 Pain in right knee (principal); M16.11 Unilateral primary osteoarthritis, right hip; M51.36 Other intervertebral disc degeneration, lumbar region; M51.37 Other intervertebral disc degeneration, lumbosacral region
CPT/HCPCS: 73502; 73562

== ENCOUNTER → 2023-03-14 10:48 | Outpatient (CLI) | payer OTHER, SELFPAY ==
--- NOTE | ~2023-03-14 | XR_ITS ---
XR wrist RT min 3V, XR wrist LT min 3V 03/14/2023 11:08 Indication: Wrist pain Procedure: 3 views each wrist Comparison: No prior studies for comparison. Findings: There is widening of the left scapholunate distance, 6 consistent with scapholunate dissoci ation. There is joint space narrowing of the radiocarpal joint. There is an old radial styloid avulsi on fracture. There is degenerative change of the left triscaphe and first CMC joints. No significant bone or joint abnormality in the right wrist. 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
== END ==
PROVIDERS: PCP Nurse Practitioner Family; Visit Provider Plastic Surgery
DX: M19.031 Primary osteoarthritis, right wrist (principal); M19.032 Primary osteoarthritis, left wrist
CPT/HCPCS: 73110

== ENCOUNTER 2023-04-23 13:34 | Outpatient (CLI) | payer OTHER, SELFPAY ==
--- NOTE | ~2023-04-23 | XR_ITS ---
EXAMINATION: XR lg joint inject/asp w image DATE: 04/23/2023 14:33 INDICATION: Right hip arthritis TECHNIQUE: A time-out was performed to verify the patient's name, date of , and procedure to b e performed. The procedure including the risks, benefits, and alternatives was discussed with the pat ient. Risks discussed included bleeding and infection. The patient understood the risks and agreed to proceed. The skin overlying the right hip joint was prepped and draped in usual sterile fashion. A nesthetic was administered with 1% lidocaine subcutaneously. A 22 G needle was advanced under fluoro scopic guidance into the joint. Injection of 1 mL of Omnipaque 240 confirmed intra-articular positio n of the needle. Subsequently, injectate consisting of 3 mL of a 2:1 mixture of 0.5% Sensorcaine: 80 mg/mL Depo-Medrol for a total dosage of 80 mg Depo-Medrol was instilled. Washout of contrast was see n confirming intra-articular administration. The needle was removed and the entry site was cleaned an d dressed. There were no immediate complications. Fluoroscopy exposure time was 0.1 minutes. The tot al number of images was 2. FINDINGS: Real-time fluoroscopy demonstrates the needle in the right hip joint. Patient's pain prior to procedure:8/10. Patient's pain following the procedure: 0/10. IMPRESSION: 1. Successful right hip joint injection of local anesthetic and steroid with decrease in the patient' s presenting pain. Reviewed, dictated and finalized at location A. IMPRESSION: 1. Successful right hip joint injection of local anesthetic and steroid with de crease in the patient's presenting pain.
== END 2023-04-23 13:35 | disposition home or self-care (01) ==
LOC: ANHIMG 13:36
PROVIDERS: PCP Nurse Practitioner Family; Visit Provider Orthopaedic Surgery
DX: M16.11 Unilateral primary osteoarthritis, right hip (principal)
CPT/HCPCS: 20610; 77002; J1040; Q9966

== ENCOUNTER 2023-07-07 09:21 | Outpatient (CLI) | payer OTHER, SELFPAY ==
--- NOTE | 2023-07-07 11:00 | NEURO_ITS ---
Impression: # Complains of numbness of hands. History of contractures of interphalangeal joints with Dupuytren?s contracture. # Bilateral Carpal Tunnel Syndrome, right more than left, sensory more than motor. # Needle/EMG exam without acute changes but decreased motor unit potentials in multiple muscles. Nerve Conduction Studies Anti Sensory Summary Table Stim Site NR Peak (ms) P-T Amp (?V) Site1 Site2 Delta-P (ms) Dist (cm) Vin (m/s) Left Median Anti Sensory (2-3nd Digit) NO RESPONSE Wrist NR Wrist 2-3nd Digit 14.0 Wrist NR Wrist 2-3nd Digit 14.0 Right Median Anti Sensory (2-3nd Digit) Wrist 6.2 58.6 Wrist 2-3nd Digit 6.2 14.0 23 Wrist 6.4 46.8 Wrist 2-3nd Digit 6.2 14.0 23 Left Radial Anti Sensory (Base 1st Digit) Wrist 2.4 18.4 Wrist Base 1st Digit 2.4 0.0 Right Radial Anti Sensory (Base 1st Digit) Wrist 2.0 59.6 Wrist Base 1st Digit 2.0 0.0 Left Ulnar Anti Sensory (5th Digit) Wrist 3.0 15.4 Wrist 5th Digit 3.0 14.0 47 Right Ulnar Anti Sensory (5th Digit) Wrist 3.7 28.5 Wrist 5th Digit 3.7 14.0 38 Motor Summary Table Stim Site NR Onset (ms) O-P Amp (mV) Site1 Site2 Delta-0 (ms) Dist (cm) Vin (m/s) Left Median Motor (Abd Poll Brev) Wrist 4.1 0.4 Elbow Wrist 5.3 28.0 53 Elbow 9.4 1.9 Right Median Motor (Abd Poll Brev) Wrist 4.9 1.6 Elbow Wrist 6.0 27.0 45 Elbow 10.9 2.7 ELB/ADM Wrist 0.5 0.0 Left Ulnar Motor (Abd Dig Minimi) Wrist 2.8 7.8 A Elbow Wrist 5.4 30.0 56 A Elbow 8.2 7.6 Right Ulnar Motor (Abd Dig Minimi) Wrist 3.4 4.5 A Elbow Wrist 5.3 28.0 53 A Elbow 8.7 2.7 F Wave Studies NR F-Lat (ms) L-R F-Lat (ms) Left Median (Mrkrs) (Abd Poll Brev) 29.66 0.57 Right Median (Mrkrs) (Abd Poll Brev) 29.09 0.57 Left Ulnar (Mrkrs) (Abd Dig Min) 28.82 0.88 Right Ulnar (Mrkrs) (Abd Dig Min) 27.94 0.88 EMG Side Muscle Nerve Root Ins Act Fibs Amp Dur Recrt Comment Right 1stDorInt Ulnar C8-T1 Nml Nml Nml >12ms Reduced Right Ext Indicis Radial (Post Int) C7-8 Nml Nml Nml >12ms Reduced Right Ext Digitorum Radial (Post Int) C7-8 Nml Nml Nml >12ms Reduced Right BrachioRad Radial C5-6 Nml Nml Nml Nml Nml Right PronatorTeres Median C6-7 Nml Nml Nml >12ms Reduced Right Abd Poll Brev Median C8-T1 Nml Nml Nml >12ms Reduced Left 1stDorInt Ulnar C8-T1 Nml Nml Nml >12ms Reduced Left Ext Indicis Radial (Post Int) C7-8 Nml Nml Nml >12ms Reduced Left Ext Digitorum Radial (Post Int) C7-8 Nml Nml Nml >12ms Reduced Left BrachioRad Radial C5-6 Nml Nml Nml Nml Nml Left PronatorTeres Median C6-7 Nml Nml Nml >12ms Reduced Left Abd Poll Brev Median C8-T1 Nml Nml Nml >12ms Reduced Right ABD Dig Min Ulnar C8-T1 Nml Nml Nml >12ms Reduced Left ABD Dig Min Ulnar C8-T1 Nml Nml Nml >12ms Reduced MTDD
== END 2023-07-08 09:25 | disposition home or self-care (01) ==
LOC: ANHNEURO 08-19 09:21
PROVIDERS: PCP Nurse Practitioner Family; Visit Provider Plastic Surgery
DX: R20.2 Paresthesia of skin (principal); G56.03 Carpal tunnel syndrome, bilateral upper limbs
CPT/HCPCS: 36415; 80053; 80061; 82306; 83036; 83540; 85025; 95886; 95911

== ENCOUNTER 2023-07-07 10:35 | Outpatient (CLI) | payer OTHER, SELFPAY ==
[2023-07-07 11:04] LABS: Basophils Percent Auto 0.6 % (0.2-1.2); Eosinophils Absolute Auto 0.1 K/mm3 (0-0.3); Eosinophils Percent Auto 2.1 % (0-4.4); Hematocrit 33.3 % (37.0-47.0); Hemoglobin 11.1 g/dL (12.0-15.0); Immature Granulocyte Absolute 0.01 K/mm3 (0.00-0.031); Immature Granulocyte Percent A 0.2 % (0-0.5); Lymphocytes Absolute Auto 1.12 K/mm3 (0.9-3.2); Lymphocytes Percent Auto 23.6 % (18.3-44.2); Mean Corpuscular HGB Conc 33.3 g/dl (32-36); Mean Corpuscular Hemoglobin 31.9 pg (26-34); Mean Corpuscular Volume 95.7 fl (80-100); Mean Platelet Volume 10.1 fl (7.4-10.4); Monocytes Absolute Auto 0.6 K/mm3 (0.1-0.6); Monocytes Percent Auto 12.4 % (2.6-8.5); Neutrophils Absolute Auto 2.9 K/mm3 (1.3-6.7); Neutrophils Percent Auto 61.1 % (45.5-73.1); Platelet Count Result 368 k/mm3 (150-375); Red Blood Count 3.48 M/mm3 (4.2-5.4); Red Cell Distribution Width 13.3 % (11.5-14.5); White Blood Count 4.8 K/mm3 (4.5-10.0)
[2023-07-07 11:20] LABS: Iron 145 ug/dL (37-170)
[2023-07-07 11:21] LABS: Alanine Aminotransferase 16 U/L (6-35); Albumin Level 4.8 g/dL (3.5-5.1); Alkaline Phosphatase 95 U/L (38-126); Anion Gap 8 mmol/L (8-16); Aspartate Amino Transferase 33 U/L (14-36); Bilirubin,Total 0.6 mg/dL (0.2-1.3); Blood Urea Nitrogen 13 mg/dL (7-17); Calcium 9.5 mg/dL (8.4-10.2); Carbon Dioxide 27 mmol/L (22-30); Chloride 95 mmol/L (98-107); Cholesterol 276 mg/dL (0-200); Estimated Glomerular Filt Rate > 60; Glucose 116 mg/dL (65-110); Potassium 4.4 mmol/L (3.4-5.0); Sodium 130 mmol/L (137-145); Triglycerides 64 mg/dL (<150)
[2023-07-07 11:30] LABS: LDL Cholesterol Direct 124 mg/dL
[2023-07-07 12:31] LABS: Vitamin D 25 Hydroxy 15.4 ng/mL
[2023-07-07 13:00] LABS: HDL Direct 137 mg/dL
[2023-07-08 07:33] LABS: Hemoglobin A1C 5.5 % (<5.7)
== END 2023-07-07 10:36 | disposition home or self-care (01) ==
LOC: ANHLAB 10:37
PROVIDERS: PCP Nurse Practitioner Family; Visit Provider Nurse Practitioner Family
DX: E78.5 Hyperlipidemia, unspecified (principal); D64.9 Anemia, unspecified; I10 Essential (primary) hypertension; Z79.899 Other long term (current) drug therapy
CPT/HCPCS: 36415; 80053; 80061; 82306; 83036; 83540; 85025

== ENCOUNTER 2023-07-23 13:31 | Outpatient (CLI) | payer OTHER, SELFPAY ==
--- NOTE | ~2023-07-23 | XR_ITS ---
EXAMINATION: XR lg joint inject/asp w image DATE: 07/23/2023 14:13 INDICATION: Right hip arthritis. TECHNIQUE: A time-out was performed to verify the patient's name, date of , and procedure to b e performed. The procedure including the risks, benefits, and alternatives was discussed with the pat ient. Risks discussed included bleeding and infection. The patient understood the risks and agreed to proceed. The skin overlying the right hip joint was prepped and draped in usual sterile fashion. A nesthetic was administered with 1% lidocaine subcutaneously. A 22 G needle was advanced under fluoro scopic guidance into the joint. Subsequently, injectate consisting of 2 mL 0.5% bupivacaine and 1 mL 80 mg/mL Depo-Medrol was instilled. The needle was removed and the entry site was cleaned and dress ed. There were no immediate complications. Fluoroscopy exposure time was 0.1 minutes. The total numb er of images was 1. FINDINGS: Real-time fluoroscopy demonstrates the needle in the right hip joint. Patient's pain prior to procedure:8/10. Patient's pain following the procedure: 6/10. IMPRESSION: 1. Fluoroscopy guided right hip joint injection of local anesthetic and steroid with decrease in the patient's presenting pain. Reviewed, dictated and finalized at location A. [employer] MANAGER
== END 2023-07-23 13:32 | disposition home or self-care (01) ==
LOC: ANHIMG 13:33
PROVIDERS: PCP Nurse Practitioner Family; Visit Provider Orthopaedic Surgery
DX: M16.11 Unilateral primary osteoarthritis, right hip (principal)
CPT/HCPCS: 20610; 77002; J1040

== ENCOUNTER 2023-09-09 01:38 | Day surgery (SDC) | payer OTHER, SELFPAY ==
[2023-09-02 14:17] VITALS: BMI 20.4
--- NOTE | 2023-09-06 10:46 | PC.NURSE ---
Instructions emailed to pt for prep. Transportation form filled out by Ashley Edwards pbx manager, faxed to number on form. Pt came in and picked up instructions and informed the form was sent.
--- NOTE | 2023-09-07 09:40 | SUR.PREOP ---
Patient called regarding upcoming procedure. Voicemail left regarding appointment times.
[2023-09-09 11:03] VITALS: BP 175/94; PULSE 104; RESP 18; TEMP 36.1; O2SAT 100
--- NOTE | 2023-09-09 11:07 | WPDANESEPPF ---
Anes - Initial Pre Proc Eval Procedure: Operation Date: 09/09/23 12:30 Proposed Procedures p Screening Colonoscopy - Jorge Ventura MD Date/Time: 09/09/23 11:07 Surgeon: Jorge Ventura MD Pre Op Diagnosis: neoplasm screening Patient Data Age: 63 Gender: F Height: 1.63 m Weight: 52.6 kg Last Vital Signs Temp 97 F L 09/09/23 11:03 Pulse 104 H 09/09/23 11:03 Resp 18 09/09/23 11:03 BP 175/94 H 09/09/23 11:03 Pulse Ox 100 09/09/23 11:03 O2 Del Method Room Air 09/09/23 11:03 Allergies Allergy/AdvReac Type Severity Reaction Status Date / Time No Known Allergies Allergy Unknown Verified 09/09/23 11:01 Home Medications Medication Instructions Recorded Confirmed Type famotidine 20 mg tablet See Rx Instructions .Route 06/07/23 09/09/23 Rx .COMPLEX #90 tabs sodium chloride 1,000 mg soluble 1,000 mg PO BID #60 tabs 07/07/23 09/02/23 Rx tablet metoprolol succinate 50 mg See Rx Instructions .Route 08/05/23 09/09/23 Rx tablet,extended release 24 hr .COMPLEX #90 tabs lisinopril 40 mg tablet See Rx Instructions .Route 08/20/23 09/02/23 Rx .COMPLEX #90 tabs sertraline 25 mg tablet See Rx Instructions .Route 08/20/23 09/02/23 Rx .COMPLEX #90 tabs cyclobenzaprine 10 mg tablet See Rx Instructions .Route 08/31/23 09/02/23 Rx .COMPLEX #30 tabs acetaminophen 500 mg tablet 500 mg PO Q6H PRN Pain 09/02/23 09/02/23 History (Tylenol Extra Strength) esomeprazole magnesium 20 mg 20 mg PO DAILY 09/02/23 09/02/23 History tablet,delayed release Patient hx anesthesia problems: none Family hx anesthesia problems: none Results Review: All pre-operative results and documents have been reviewed as part of the pre-operative evaluation. [facility] Past Medical History Medical History Daily consumption of alcohol Depression Gastroesophageal reflux disease Generalized anxiety disorder Hypertension Nicotine dependence, cigarettes, uncomplicated Surgical History Surgical History History of colonoscopy last done at age 51 Family History Family History Father Acute myocardial infarction Hypertension Mother Hypertension Sibling Hypertension Social History Social History Social History: Surrogate medical decision maker: Patient does not name a surrogate decision maker at this time. Code status: Full code. Smoking packs per day: 0.5 Smoking cigarettes per day: 10.0 Years smoked: 30 Smoking pack-years: 15.00 Smoking status: Current every day smoker Tobacco type: cigarettes Alcohol intake: current Drinks per week: 12 Alcohol use details: BEER Substance use: current Substance use type: marijuana Other substance usage details: OCC. SMOKE Lack of Transportation: No Lack of Food: Never True Current Housing: I Have Housing Concerned About Future Housing: No Difficulty Paying Gas/Electric Bills: No Difficulty Paying for Meds: No Currently Unemployed: No Education: Bachelor's Degree Living arrangements: with family Spiritual care concerns: No Anes - Eval Final PreProcedure Day of Procedure 09/09/23 11:07 Patient weight: normal Heart: regular rate and rhythm Lungs: clear to auscultation Airway: Mallampati scale class II Neurological: alert and oriented Last oral intake: >/= 8 hours ASA classification: II Emergent: no Anesthetic plan: proceed Anesthesia type and monitoring: general GIVS and standard monitoring Results Review: All pre-operative results and documents have been reviewed as part of the pre-operative evaluation. Informed Consent: The patient's anesthetic plan and its attendant risks and benefits were discussed with the patient/family/POA. Questions were solici
[2023-09-09] MEDS: LACTATED RINGERS 1,000 ML 150 ML IV CONT (11:15)
--- NOTE | 2023-09-09 11:32 | PM.HPGS ---
History of Present Illness History of Present Illness Consent: Risks, benefits, and alternatives have been discussed and questions answered. Patient agrees to proceed with procedure. Chief complaint: neoplasm screening Narrative: Kesha Garcia is a 63 year old female here for screening colonoscopy, last one 15 years ago Review of Systems Review of Systems: All systems reviewed & are unremarkable except as noted in HPI and below PMFSH Past Medical History Medical History (Updated 09/09/23 @ 11:35 by Jorge Ventrua MD) Colon cancer screening Daily consumption of alcohol Depression Gastroesophageal reflux disease Generalized anxiety disorder Hypertension Nicotine dependence, cigarettes, uncomplicated Surgical History Surgical History History of colonoscopy last done at age 51 Family History Family History Father Acute myocardial infarction Hypertension Mother Hypertension Sibling Hypertension Social History Social History Social History: Surrogate medical decision maker: Patient does not name a surrogate decision maker at this time. Code status: Full code. Smoking packs per day: 0.5 Smoking cigarettes per day: 10.0 Years smoked: 30 Smoking pack-years: 15.00 Smoking status: Current every day smoker Tobacco type: cigarettes Alcohol intake: current Drinks per week: 12 Alcohol use details: BEER Substance use: current Substance use type: marijuana Other substance usage details: OCC. SMOKE Lack of Transportation: No Lack of Food: Never True Current Housing: I Have Housing Concerned About Future Housing: No Difficulty Paying Gas/Electric Bills: No Difficulty Paying for Meds: No Currently Unemployed: No Education: Bachelor's Degree Living arrangements: with family Spiritual care concerns: No Meds Home Medications and Allergies Home Medications Medication Instructions Recorded Confirmed Type famotidine 20 mg tablet See Rx Instructions .Route 06/07/23 09/09/23 Rx .COMPLEX #90 tabs sodium chloride 1,000 mg soluble 1,000 mg PO BID #60 tabs 07/07/23 09/02/23 Rx tablet metoprolol succinate 50 mg See Rx Instructions .Route 08/05/23 09/09/23 Rx tablet,extended release 24 hr .COMPLEX #90 tabs lisinopril 40 mg tablet See Rx Instructions .Route 08/20/23 09/02/23 Rx .COMPLEX #90 tabs sertraline 25 mg tablet See Rx Instructions .Route 08/20/23 09/02/23 Rx .COMPLEX #90 tabs cyclobenzaprine 10 mg tablet See Rx Instructions .Route 08/31/23 09/02/23 Rx .COMPLEX #30 tabs acetaminophen 500 mg tablet 500 mg PO Q6H PRN Pain 09/02/23 09/02/23 History (Tylenol Extra Strength) esomeprazole magnesium 20 mg 20 mg PO DAILY 09/02/23 09/02/23 History tablet,delayed release Allergies Allergy/AdvReac Type Severity Reaction Status Date / Time No Known Allergies Allergy Unknown Verified 09/09/23 11:01 Vital Signs Vital Signs - 24 hr 09/09/23 11:03 Temperature 97 F L Pulse Rate 104 H Respiratory Rate 18 Blood Pressure 175/94 H Pulse Oximetry 100 Oxygen Delivery Room Air Exam Const: General: comfortable and no acute distress HENMT: Face/Nose/Sinus: Normal nares present Eyes: General: appearance normal, both eyes and all related structures Neck: Neck: no JVD Resp: Auscultation: clear to auscultation bilaterally Cardio: Rate: regular rate Rhythm: regular rhythm GI: Inspection: non-distended GI Palp: Yes Soft to palpation Skin: General skin exam: normal color Neuro: General: gait normal Speech: normal speech Extrem: General: normal to inspection Psych: Mental Status: mental status grossly normal Assessment and Plan Assessment and plan (1) Colon cancer screening: Code(s): Z12.11 - Encounter for screening for malignant
[2023-09-09 11:58] VITALS: BP 102/65; PULSE 68; RESP 17; O2SAT 100
[2023-09-09 12:08] VITALS: BP 111/70; PULSE 64; RESP 15; O2SAT 100
[2023-09-09 12:18] VITALS: BP 133/76; PULSE 71; RESP 15; O2SAT 100
--- NOTE | 2023-09-09 12:33 | SUR.PHASEII ---
Pt stable and up to chair in recovery . Pt awaiting med car arrival.
== END 2023-09-09 12:58 | disposition home or self-care (01) ==
PROVIDERS: PCP Nurse Practitioner Family; Visit Provider Internal Medicine Gastroenterology
PROC: 0DJD8ZZ Inspection of Lower Intestinal Tract, Via Natural or Artificial Opening Endoscopic (ICD-10-PCS; CPT 45378; principal; 2023-09-09 12:30)
DX: Z12.31 Encounter for screening mammogram for malignant neoplasm of breast (principal); K63.5 Polyp of colon; K64.8 Other hemorrhoids; I10 Essential (primary) hypertension; F32.A Depression, unspecified; K21.9 Gastro-esophageal reflux disease without esophagitis; F41.9 Anxiety disorder, unspecified; Z82.49 Family history of ischemic heart disease and other diseases of the circulatory system; F17.210 Nicotine dependence, cigarettes, uncomplicated; F12.90 Cannabis use, unspecified, uncomplicated
CPT/HCPCS: 45385; 88305; J2704; J7120

== ENCOUNTER 2023-09-15 11:59 | Outpatient (NON) | payer OTHER, SELFPAY | END 2023-09-15 12:00 | disposition home or self-care (01) | LOC: CHSLAB 12:05 | PROVIDERS: Visit Provider Nurse Practitioner Family | DX: Z12.4 Encounter for screening for malignant neoplasm of cervix (principal); Z11.51 Encounter for screening for human papillomavirus (HPV); Z11.8 Encounter for screening for other infectious and parasitic diseases | CPT/HCPCS: 87491; 87591; 87624; 87625; 88175; G0145 ==

== ENCOUNTER 2023-09-17 14:39 | Outpatient (CLI) | payer OTHER, SELFPAY ==
--- NOTE | ~2023-09-17 | MM_ITS ---
EXAMINATION: MM screening halle BI w jonathan HISTORY: Screening mammogram TECHNIQUE: Craniocaudal and mediolateral oblique 3-D tomosynthesis images were obtained and synthetic 2-D images were generated. CAD analysis was submitted and interpreted. COMPARISON: 04/18/2019, 05/08/2016, 08/29/2014 bilateral screening mammogram examinations BREAST PARENCHYMAL COMPOSITION: The breasts are heterogeneously dense, which may obscure small masses . FINDINGS: There is no evidence of suspicious mass, calcification, or architectural distortion to sugg est malignancy in either breast. There has been no suspicious interval change. IMPRESSION: 1. No mammographic evidence of malignancy. 2. Recommend routine screening mammography in one year. BI-RADS Category 1: Negative Reviewed, dictated and finalized at location A.
== END 2023-09-17 14:40 | disposition home or self-care (01) ==
LOC: CHSIMG 14:41
PROVIDERS: PCP Nurse Practitioner Family; Visit Provider Nurse Practitioner Family
DX: Z12.31 Encounter for screening mammogram for malignant neoplasm of breast (principal)
CPT/HCPCS: 77063; 77067

== ENCOUNTER 2024-08-30 00:24 | Day surgery (SDC) | payer BC, SELFPAY ==
[2024-08-22 14:14] VITALS: BMI 20.7
--- NOTE | 2024-08-22 14:29 | PC.NURSE ---
Report to the Outpatient Waiting Room, entrance under the green pavilion located off [facility], at time ___1000 am____ on date _08/30/24 . Planned Procedure Time: __1200pm .? Time changes happen often and if your time is changed the preop area will call you the afternoon before. - You and your visitor will be asked to self-screen and do not enter if you have any COVID symptoms. Please call surgeon if you need to reschedule. - A mask is optional within the hospital at this time. Patients NPO after midnight -NO FOOD OR DRINK until time of surgery and no smoking, or chewing tobacco (or any form of nicotine). No chewing gum, candy or mints. Take only the following medications with a SIP of water on the morning of surgery: _Amlodipine and Metoprolol, tylenol if needed DO NOT STOP ANY OF YOUR OTHER PRESCRIPTION MEDICATIONS PRIOR TO SURGERY EXCEPT THE FOLLOWING Medications to discontinue per physician None Date to take last dose____None Please no make-up, nail mongolian, hairspray, perfume, deodorant, or body powder the day of surgery.? No jewelry (including any body piercings) or valuables the day of surgery, leave them at home.? Please take a shower or bath the night before, or the morning of, surgery with an antibacterial soap.? Wear comfortable, loose fitting clothing.? - Jewelry must be removed prior to entering the operating room.? Rings and piercings that are not removed may be cut off. - The hospital will not accept responsibility for valuables.? - Please leave all valuables, including medications, at home the day of surgery. If you are going home after surgery, a licensed six horse hitch driver must drive you home.? - NO public transportation without another adult if you receive anesthesia. - We recommend that an adult stay with you for 24 hours following discharge. - We also recommend that you do not drive, make important decision, drink alcoholic beverages, or take any drugs that were not prescribed by your health care provider for at least 24 hours after your discharge time. Follow any additional instructions given to you from your surgeon. Telephone instructions given to ___Patient and asked if any additional questions and then verbalized understanding. Patient advised to call surgeon office or pre surgery nurse liaison [phone] if any additional questions.
--- OUTSIDE RECORDS SUMMARY | 2024-08-30 00:28 | XMS_ITS | Clinical Summary ---
Author Organization [facility] Address [address] [place] [address] Care Team Providers Care Rectification Printer Name Role Phone Unavailable Primary Care Provider Unavailabl e Source Comments [facility],non-owned Affiliates and Associated Physician Practices is amultiple site organization consisting of ambulatory clinics and hospital sitesin [place], [place], [place] and [place]. This disclosure is being madepursuant to the Care Everywhere program and may not contain all information available regarding this patient. Last updated 18.[facility] [employer] Social History Tobacco Use Types Packs/Day Years Used Date Smoking Tobacco: Never Assessed Sex and Gender Information Value Date Recorded Sex Assigned at Not on file Gender Identity Not on file Sexual Orientation Not on file Plan of Treatment Health Maintenance Due Date Last Done Comments COLOGUARD (AGES 45-75) - COL ON CA SCREENING 1961 COLON MONITORING 1961 COLONOSCOPY - COLON CA SCREENING 1961 CT COLONOGRAPHY - COLON CA SCREENING 1961 Colorectal Cancer Screening 1961 FIT - COLON CA SCREENING 1961 FLEX SIG - COLON CA SCREENING 1961 LIPID TESTING 1961 PAP SMEAR 1961 HIV SCREENING 1976 HEPATITIS C SCREENING 07/30/1979 DTAP/TDAP/TD VACCINES (1 - Tdap) 1980 PNEUMOCOCCAL VACCINE 50+ (1 of 1 - PCV) 2011 ZOSTER VACCINE (1 of 2) 2011 MAMMOGRAM 02/04/2014 02/05/2012 COVID-19 VACCINE (1 - 2023-2 5 season) 2024 INFLUENZA VACCINE (#1) 2024 DEPRESSION SCREENING 06/21/2024 Respiratory Syncytial Virus (RSV) Vaccine Pt: or over 60 yrs (1 - 1-dose 75+ series) 2036 HEPATITIS B VACCINE Aged Out No longe r eligible based on patient's age to complete this topic HIB VACCINE Aged Out No longer eligi ble based on patient's age to complete this topic HPV VACCINE Aged Out No longer eligi ble based on patient's age to complete this topic MENINGOCOCCAL (Group B) VACCINE Aged Out No longer eligible based on patient's age to complete this topic MENINGOCOCCAL VACCINE Aged Out No louann colby eligible based on patient's age to complete this topic PNEUMOCOCCAL VACCINE Aged Out No long er eligible based on patient's age to complete this topic Procedures Procedure Name Priority Date/Time Associated Diagnosis Comments MAMMO BILAT SCREENING Routine 02/05/2012 9:50 AM CDT Other screening mammogram from Last 3 Months or Most Recently Relevant to Health Maintenance Results * PAMELA SCREENING DIGITAL IMAGE BILATERAL G0202 (02/05/2012 9:50 AM CDT) Anatomical Region Laterality Modality Breast Bilateral Mammography 02/05/2012 10:3 4 AM CDT Narrative 02/05/2012 10:34 AM CDT EXAMINATION: Digital screening mammogram on 02/05/2012. PRIOR: 2010 [employer], [place] FINDINGS: Computer assisted detection was utilized. The tissue density is dense. There is no significant change since the prior mammogram. ASSESSMENT: BIRADS Category 1: Negative mammogram. RECOMMENDATION: Follow up in one year. [facility] Breast [facility] utilizes [employer] as a reminder system to notify patients of their next recommended mammogram. Procedure Note Jacey Abbott MD - 02/05/2012 EXAMINATION: Digital screening mammogram on 02/05/2012. PRIOR: 2010 [employer], [place] FINDINGS: Computer assisted detection was utilized. The tissue density is dense. There is no significant change since the prior mammogram. ASSESSMENT: BIRADS Category 1: Negative mammogram. RECOMMENDATION: Follow up in one year. [facility] Breast [facility] utilizes [employer] as a reminder system to notify patients of their next recommended mammogram. Deepika Kitchen MD MAMMO ORDERABLES from Last 3 Months or Most Recently Relevant to Health Maintenance
--- OUTSIDE RECORDS SUMMARY | 2024-08-30 00:28 | XMS_ITS | Patient Health Summary ---
Author Organization [facility] Address [address] [place] [address] Care Team Providers Care Filtration Plant Mechanic Name Role Phone Unavailable Primary Care Provider Unavailabl e Note from [facility],non-owned Affiliates and Associated Physician Practices is amultiple site organization consisting of ambulatory clinics and hospital sitesin [place], [place], [place] and [place]. This disclosure is being madepursuant to the Care Everywhere program and may not contain all information available regarding this patient. Last updated 18.[facility] Social History Tobacco Use Types Packs/Day Years Used Date Smoking Tobacco: Never Assessed Sex and Gender Information Value Date Recorded Sex Assigned at Not on file Gender Identity Not on file Sexual Orientation Not on file Procedures * IMAGING/RADIOLOGY/XRAY RESULTS ORDER(Performed 02/18/2012) * MAMMO BILAT SCREENING(Performed 02/05/2012) Performed for Other screening mammogram Results * IMAGING/RADIOLOGY/XRAY RESULTS ORDER (02/18/2012 8:14 AM CDT) Anatomical Region Laterality Modality Other Narrative Transcriptions Document, Scanned - 02/18/2012 8:14 AM CDT Scanned Document IMAGING * PAMELA SCREENING DIGITAL IMAGE BILATERAL G0202 (02/05/2012 9:50 AM CDT) Anatomical Region Laterality Modality Breast Bilateral Mammography 02/05/2012 10:3 4 AM CDT Narrative 02/05/2012 10:34 AM CDT EXAMINATION: Digital screening mammogram on 02/05/2012. PRIOR: [address] [facility], [place] FINDINGS: Computer assisted detection was utilized. The tissue density is dense. There is no significant change since the prior mammogram. ASSESSMENT: BIRADS Category 1: Negative mammogram. RECOMMENDATION: Follow up in one year. [facility] Breast [facility] utilizes [employer] as a reminder system to notify patients of their next recommended mammogram. Procedure Note Jacey Abbott MD - 02/05/2012 EXAMINATION: Digital screening mammogram on 02/05/2012. PRIOR: [facility], [place] FINDINGS: Computer assisted detection was utilized. The tissue density is dense. There is no significant change since the prior mammogram. ASSESSMENT: BIRADS Category 1: Negative mammogram. RECOMMENDATION: Follow up in one year. [facility] Breast [facility] utilizes [employer] as a reminder system to notify patients of their next recommended mammogram. Deepika Kitchen MD MAMMO ORDERABLES
--- OUTSIDE RECORDS SUMMARY | 2024-08-30 00:28 | XMS_ITS | Referral Summary ---
Author Organization [facility] Address [address] [place] [address] Care Team Providers Care Director Wholesale Name Role Phone Unavailable Primary Care Provider Unavailabl e Source Comments [facility],non-owned Affiliates and Associated Physician Practices is amultiple site organization consisting of ambulatory clinics and hospital sitesin [place], [place], [place] and [place]. This disclosure is being madepursuant to the Care Everywhere program and may not contain all information available regarding this patient. Last updated 18.[facility] [employer] Social History Tobacco Use Types Packs/Day Years Used Date Smoking Tobacco: Never Assessed Sex and Gender Information Value Date Recorded Sex Assigned at Not on file Gender Identity Not on file Sexual Orientation Not on file Plan of Treatment Not on file Procedures Procedure Name Priority Date/Time Associated Diagnosis [...] mammogram on 02/05/2012. PRIOR: [facility] [place], [place] FINDINGS: Computer assisted detection was utilized. The tissue density is dense. There is no significant change since the prior mammogram. ASSESSMENT: BIRADS Category 1: Negative mammogram. RECOMMENDATION: Follow up in one year. [facility] utilizes iodine as a reminder system to notify patients of their next recommended mammogram. Procedure Note Jacey Abbott MD - 02/05/2012 EXAMINATION: Digital screening mammogram on 02/05/2012. PRIOR: [facility] [place], [place] FINDINGS: Computer assisted detection was utilized. The tissue density is dense. There is no significant change since the prior mammogram. ASSESSMENT: BIRADS Category 1: Negative mammogram. RECOMMENDATION: Follow up in one year. [facility] utilizes iodine as a reminder system to notify patients of their next recommended mammogram. Deepika Kitchen MD MAMMO ORDERABLES from Last 3 Months or Most Recently Relevant to Health Maintenance
--- NOTE | 2024-08-30 06:52 | WPDHPUPDATE1 ---
History and Physical Update Update Date/Time: 08/30/24 06:52 Patient seen and examined in pre-operative holding area. No interval change in medical history or symptoms. Patient recalls previous discussion of benefits and alternatives to procedure. Continues to desire to proceed with right endoscopic possible open carpal tunnel release, right cubital tunnel release, right small middle and ring finger fasciectomy and right ring finger a1 barbara release. Reviewed procedure, post-op expectations and risks including but not limited to bleeding, infection, injury to tendon/nerve/vessel, decreased hand function, stiffness, RSD, no change or worsening of symptoms, recurrence, incomplete release. I discussed the possible use of assistants and their participation in the case. Patient stated understanding and signed the consent form wishing to proceed.
--- NOTE | 2024-08-30 06:53 | P.OP_ITS ---
Procedure Note - Detailed Date of Procedure 08/30/24 Pre-op Diagnosis rt. carpal & cubital tunnel syndrome,, right small middle ring finger dupuytren contracture, right ring trigger finger Post-op Diagnosis Same Procedure Performed right ectr, right CuTR, right small middle and ring finger fasciectomy and right ring finger a1 barbara release and right small finger pipjoint capsulotomy Surgeon Thai Craig MD [employer] anderson sandoval pa-c Anesthesia MAC Description of Procedure INFORMED CONSENT: The patient was seen and examined and marked in the pre-op area.? The patient signed the consent form. PROCEDURE IN DETAIL:The patient taken back to OR on the stretcher in supine pos ition. Time out performed with anesthesia, surgeon and staff agreeing on patient's name site and surgery to be performed SCDs were placed on the lower extremities and inflated. A tourniquet was placed on {right} upper extremity and antibiotics given IV After anesthesia administered sedation I injected {10}cc 1%lido with epi and 0.5% marcaine plain at the elbow and wrist and 8cc of the same mixture without epi for the palm The?{right upper extremity}?was prepped and draped in sterile fashion the??{right upper extremity} was? exsanguinated with Esmarch bandage and tourniquet inflated to 250mmHg I made a transverse incision in the {right} volar distal wrist crease through skin and dermis with 15 blade scalpel.? Littler scissors spread down to antebrachial fascia. A small incision was made in antebrachial fascia allowing access to Carpal tunnel. I proceeded with sequential dilation staying in line with the ring finger and hugging the hook of the hamate.? I then used the synovial elevator to free any adhesions from the underside of the transverse carpal ligament. Next I was able to insert the [employer] endoscopic carpal tunnel device with direct visualization of the transverse fibers on the monitor and proceeded with complete segmental retrograde release of the ligament in its entirety.? I irrigated with normal saline and closed with 4-0 monocryl for dermis and subcuticular closure. Next I took my attention to the right middle finger where I proceeded with making a longitudinal incision over the central cord from the palm going across the MP joint flexion crease in an oblique fashion. Fifteen blade was used to elevate skin flaps to expose the Dupuytren's cord near its origin in the palm. I circumferentially dissected around this cord with Littler scissors. The cord was transected then I proceeded with anterograde dissection of the cord across the MP joint until I was able to achieve full extension of the MP joint and PIP joint. Neurovascular bundles were identified and protected throughout the procedure. I now proceeded with making a longitudinal incision over the right ring finger Dupuytren's cord also overlying the A1 barbara through skin and dermis with a 15 blade scalpel 15 blade was used to elevate skin flaps. I proceeded with dissection around the cord restricting motion of the ring finger MP joint and excise this until much easier to extend the ring finger to neutral. Spreading down through subcutaneous tissue with Littler scissors identified the A1 barbara. The A1 barbara was initially incised with 15 blade scalpel. Littler scissors were used to spread above and below it proximally and distally completing the transection entirely. Ragnell retractor was used withdrawal the FDS and FDP tendons for inspection. They were free of masses and synovitis to slightly frayed but were now gliding smoothly in the sheath without crepitus or triggering. Next I took my attention to the most significantly contracted right small finger. I proceeded with making a longitudinal incision over the main cord from the palm proximal to the distal palmar crease going distally across the PIP joint. My incisions were made obliquely across flexion creases and to create Shon incisions as necessary. I elevated skin flaps above the fascia. Littler scissors were used to circumferentially dissect around the cords origin proximally. The cord was transected. I proceeded with anterograde dissection of this cord with both a Littler scissors and 15 blade. Neurovascular bundles were identified and protected throughout the procedure. After I was able to achieve release of the palmar crease and MP joint. It was noted the PIP joint remained slightly contracted. I proceeded with deeper dissection down to the volar plate and released check rein ligaments thus performing pipjoint capsulotomy which allowed for near full extension of the PIP joint though this did require some assistance and was tight in doing so. This appeared to be partially due to skin contracture and tendon tightness. I irrigated with normal saline. I attempted to release the skin and create further Z-plasties and rearrangements as possible to improve closure and mobility though there was still a 15 degree PIP joint contracture without significant stretching. The incisions were closed with 4-0 chromic. I next proceeded with making a longitudinal incision between two heads for flexor carpi ulnaris at end of {right} cubital tunnel with 15 blade scalpel.? Littler scissors were used to spread down to FCU fascia.? An incision was made in FCU fascia and ulnar nerve identified exiting cubital tunnel.? I proceeded with complete retrograde release of the cubital tunnel including 7cm proximal for the intermuscular septum.? The nerve appeared healthy with visible vaso nervorum.? There was no subluxation on full elbow range of motion. ? I irrigated with normal saline and closure with 4-0 monocryl for dermis and subcuticular. The incisions at the elbow and wrist was covered with Dermabond and xeroform for the palm then 4x4s, albin, and a posterior elbow and ulnar gutter splint with fingers in straighter position and secured with lise bandages after the tourniquet was let down noting the hand was warm and well perfused with good cap refill to the digits.? Patient awaken from anesthesia and transferred to recovery in stable condition Complications - none EBL- 3cc Disposition - home in stable conditions Anderson Sandoval PA-C was essential for positionig, retraction, closure and dressing placement [facility] Billing Surgery - Charge Forward: Surgery Billing ([id number], [id number] same for anderson mclaughlin )
--- NOTE | 2024-08-30 09:07 | P.PNAN_ITS ---
Anes - Eval Pre Procedure Procedure: Operation Date: 08/30/24 12:00 Proposed Procedures p Right Endoscopic Carpal Tunnel Release, Possible Right Open Cubital Tunnel Release, - Thai Craig MD s Fasciectomy Right Hand Middle Ring and Small Finger, Right Ring A-1 Kyle Release - Thai Craig MD Date/Time: 08/30/24 09:07 Surgeon: latanya Pre Op Diagnosis: rt. carpal & cubital tunnel syndrome, Patient Data Age: 64 Gender: F Height: 1.6 m Weight: 53 kg Allergies Allergy/AdvReac Type Severity Reaction Status Date / Time No Known Allergies Allergy Unknown Verified 08/22/24 14:05 Home Medications ?Medication ?Instructions ?Recorded ?Confirmed ?Type acetaminophen 500 mg tablet 500 mg PO Q6H PRN Pain 09/02/23 08/22/24 History (Tylenol Extra Strength) famotidine 20 mg tablet See Rx Instructions .Route 12/08/23 08/22/24 Rx .COMPLEX #180 tabs omeprazole 40 mg capsule,delayed See Rx Instructions .Route 06/12/24 08/22/24 Rx release .COMPLEX #180 caps sodium chloride 1,000 mg soluble See Rx Instructions .Route 07/06/24 08/22/24 Rx tablet .COMPLEX #60 tabs lisinopril 40 mg tablet See Rx Instructions .Route 07/11/24 08/22/24 Rx .COMPLEX #90 tabs amlodipine 5 mg tablet 5 mg PO DAILY #90 tabs 07/24/24 08/22/24 Rx cyclobenzaprine 10 mg tablet See Rx Instructions .Route 08/09/24 08/22/24 Rx .COMPLEX #30 tabs metoprolol succinate 50 mg See Rx Instructions .Route 08/09/24 08/22/24 Rx tablet,extended release 24 hr .COMPLEX #30 tabs sertraline 25 mg tablet See Rx Instructions .Route 08/09/24 08/22/24 Rx .COMPLEX #30 tabs Patient hx anesthesia problems: none Family hx anesthesia problems: none Results Review: All pre-operative results and documents have been reviewed as part of the pre- operative evaluation. [facility] Past Medical History Medical History Colon cancer screening Depression Hypertension Gastroesophageal reflux disease Generalized anxiety disorder Daily consumption of alcohol Nicotine dependence, cigarettes, uncomplicated Surgical History Surgical History History of colonoscopy last done at age 51 Family History Family History Father Acute myocardial infarction Hypertension Mother Hypertension Sibling Hypertension Social History Social History Social History: Surrogate medical decision maker: Patient does not name a surrogate decision maker at this time. Code status: Full code. Smoking packs per day: 0.5 Smoking cigarettes per day: 10.0 Years smoked: 30 Smoking pack-years: 15.00 Smoking status: Current every day smoker Tobacco type: cigarettes Alcohol intake: current Drinks per week: 14 Alcohol use details: BEER Substance use: never Substance use type: marijuana Other substance usage details: OCC. SMOKE Lack of Transportation: No Lack of Food: Never True Current Housing: I Have Housing Concerned About Future Housing: No Difficulty Paying Gas/Electric Bills: No Difficulty Paying for Meds: No Currently Unemployed: No Education: Bachelor's Degree Living arrangements: with family Spiritual care concerns: No Exam Day of Procedure 08/30/24 09:07
[2024-08-30] MEDS: LIDO 1%/EPINEPHRINE 1:100,000 20 ML VIAL 10 ML INFILTRATE (09:22)
[2024-08-30] MEDS: LIDOCAINE 1% LOCAL INJ 10 ML VIAL INFILTRATE (09:23)
[2024-08-30 10:00] VITALS: BP 148/75; PULSE 70; RESP 14; TEMP 36.5; O2SAT 100; BMI 22.0
[2024-08-30] MEDS: LACTATED RINGERS 1,000 ML 30 ML IV CONT ×2 (10:30→12:45)
--- NOTE | 2024-08-30 10:59 | WPDANESEPPF ---
Anes - Initial Pre Proc Eval Procedure: Operation Date: 08/30/24 12:00 Proposed Procedures p Right Endoscopic Carpal Tunnel Release, Possible Right Open Cubital Tunnel Release, - Thai Craig MD s Fasciectomy Right Hand Middle Ring and Small Finger, Right Ring A-1 Kyle Release - Thai Craig MD Date/Time: 08/30/24 10:59 Surgeon: Thai Craig MD Pre Op Diagnosis: rt. carpal & cubital tunnel syndrome, Patient Data Age: 64 Gender: F Height: 1.6 m Weight: 56.5 kg Last Vital Signs Temp 36.5 C 08/30/24 10:00 Pulse 70 08/30/24 10:00 Resp 14 08/30/24 10:00 BP 148/75 H 08/30/24 10:00 Pulse Ox 100 08/30/24 10:00 O2 Del Method Room Air 08/30/24 10:00 Allergies Allergy/AdvReac Type Severity Reaction Status Date / Time No Known Allergies Allergy Unknown Verified 08/30/24 10:27 Home Medications ?Medication ?Instructions ?Recorded ?Confirmed ?Type acetaminophen 500 mg tablet 500 mg PO Q6H PRN Pain 09/02/23 08/30/24 History (Tylenol Extra Strength) famotidine 20 mg tablet See Rx Instructions .Route 12/08/23 08/30/24 Rx .COMPLEX #180 tabs omeprazole 40 mg capsule,delayed See Rx Instructions .Route 06/12/24 08/30/24 Rx release .COMPLEX #180 caps sodium chloride 1,000 mg soluble See Rx Instructions .Route 07/06/24 08/30/24 Rx tablet .COMPLEX #60 tabs lisinopril 40 mg tablet See Rx Instructions .Route 07/11/24 08/30/24 Rx .COMPLEX #90 tabs amlodipine 5 mg tablet 5 mg PO DAILY #90 tabs 07/24/24 08/30/24 Rx cyclobenzaprine 10 mg tablet See Rx Instructions .Route 08/09/24 08/30/24 Rx .COMPLEX #30 tabs metoprolol succinate 50 mg See Rx Instructions .Route 08/09/24 08/30/24 Rx tablet,extended release 24 hr .COMPLEX #30 tabs sertraline 25 mg tablet See Rx Instructions .Route 08/09/24 08/30/24 Rx .COMPLEX #30 tabs hydrocodone 5 mg-acetaminophen 325 1 tablet PO Q6H PRN pain #12 tabs 08/30/24 Rx mg tablet Patient hx anesthesia problems: none Family hx anesthesia problems: none Results Review: All pre-operative results and documents have been reviewed as part of the pre-operative evaluation. [facility] Past Medical History Medical History Colon cancer screening Depression Hypertension Gastroesophageal reflux disease Generalized anxiety disorder Daily consumption of alcohol Nicotine dependence, cigarettes, uncomplicated Surgical History Surgical History History of colonoscopy last done at age 51 Family History Family History Father Acute myocardial infarction Hypertension Mother Hypertension Sibling Hypertension Social History Social History Social History: Surrogate medical decision maker: Patient does not name a surrogate decision maker at this time. Code status: Full code. Smoking packs per day: 0.5 Smoking cigarettes per day: 10.0 Years smoked: 30 Smoking pack-years: 15.00 Smoking status: Current every day smoker Tobacco type: cigarettes Alcohol intake: current Drinks per week: 14 Alcohol use details: BEER Substance use: never Substance use type: marijuana Other substance usage details: OCC. SMOKE Lack of Transportation: No Lack of Food: Never True Current Housing: I Have Housing Concerned About Future Housing: No Difficulty Paying Gas/Electric Bills: No Difficulty Paying for Meds: No Currently Unemployed: No Education: Bachelor's Degree Living arrangements: with family Spiritual care concerns: No Anes - Eval Final PreProcedure Day of Procedure 08/30/24 10:59 Patient weight: normal Heart: regular rate and rhythm Lungs: clear to auscultation Airway: Mallampati scale class II Neurological: alert and oriented Last oral intake: >/= 8 hours ASA classification: III Emergent: no Anesthetic plan: proceed Anesthesia type and monitoring: general LMA and standard monitoring Results Review: All pre-operative results and documents have been reviewed as part of the pre-operative evaluation. Informed Consent: The patient's anesthetic plan and its attendant risks and benefits were discussed with the patient/family/POA. Questions were solicited and answers provided to the satisfaction of the patient/family/POA.
[2024-08-30] MEDS: ceFAZolin 2 GM/D5W 50 ML 2 GM/50 ML BAG IVPB (11:27)
[2024-08-30 12:45] VITALS: BP 138/71; PULSE 73; RESP 18; O2SAT 100
[2024-08-30 13:15] VITALS: BP 165/51; PULSE 76; RESP 18; O2SAT 100
[2024-08-30 13:45] VITALS: BP 153/79; PULSE 79; RESP 18
--- NOTE | 2024-08-30 14:18 | SUR.PHASEII ---
1405 PATIENT MEETS ANESTHESIA DISCHARGE CRITERIA. DISCHARGE INSTRUCTIONS GIVEN VERBALLY & WRITTEN TO PATIENT- ALL QUESTIONS ANSWERED. DR[facility]
== END 2024-08-30 14:56 | disposition home or self-care (01) ==
PROVIDERS: PCP Nurse Practitioner Family; Visit Provider Plastic Surgery
PROC: 01N54ZZ Release Median Nerve, Percutaneous Endoscopic Approach (ICD-10-PCS; CPT 29848; principal; 2024-08-30 12:00)
PROC: (CPT 26055; 2024-08-30 12:00)
DX: G56.01 Carpal tunnel syndrome, right upper limb (principal); G56.21 Lesion of ulnar nerve, right upper limb; M65.341 Trigger finger, right ring finger; M72.0 Palmar fascial fibromatosis [Dupuytren]; I10 Essential (primary) hypertension; K21.9 Gastro-esophageal reflux disease without esophagitis; F32.A Depression, unspecified; F41.9 Anxiety disorder, unspecified; F17.210 Nicotine dependence, cigarettes, uncomplicated; F12.90 Cannabis use, unspecified, uncomplicated; Z79.891 Long term (current) use of opiate analgesic; Z82.49 Family history of ischemic heart disease and other diseases of the circulatory system
CPT/HCPCS: 64718; 29848; 26123; 26125; 26525; 88304; J0690; J2003; J2004; J2250; J2704; J3010; J7120

== ENCOUNTER 2024-09-27 10:46 | Outpatient (CLI) | payer BC, SELFPAY ==
[2024-09-27 11:01] LABS: Basophils Absolute Auto 0.04 K/mm3 (0.00-0.10); Basophils Percent Auto 0.9 % (0.0-1.0); Eosinophils Absolute Auto 0.15 K/mm3 (0.02-0.50); Eosinophils Percent Auto 3.4 % (1.0-6.0); Hematocrit 28.5 % (35.0-49.0); Hemoglobin 9.7 g/dL (12.0-15.0); Immature Granulocyte Absolute 0.01 K/mm3 (0.00-0.00); Immature Granulocyte Percent A 0.2 % (0.0-0.0); Lymphocytes Absolute Auto 0.98 K/mm3 (1.10-4.50); Lymphocytes Percent Auto 22.2 % (18.0-42.0); Mean Corpuscular Hemoglobin 32.6 pg (27.0-31.0); Mean Corpuscular Volume 95.6 fL (78.0-102.0); Mean Platelet Volume 9.1 fl (9.2-11.8); Monocytes Absolute Auto 0.48 K/mm3 (0.10-0.90); Monocytes Percent Auto 10.9 % (2.0-11.0); Neutrophils Absolute Auto 2.75 K/mm3 (1.70-7.20); Neutrophils Percent Auto 62.4 % (50.0-70.0); Platelet Count Result 415 K/mm3 (150-420); Red Blood Count 2.98 M/mm3 (4.20-5.40); Red Cell Distribution Width 12.9 % (11.6-14.4); White Blood Count 4.4 K/mm3 (4.8-10.8)
[2024-09-27 11:45] LABS: Alanine Aminotransferase 15 U/L (14-59); Albumin Level 4.3 g/dL (3.4-5.0); Alkaline Phosphatase 106 U/L (46-116); Anion Gap 11 mmol/L (4-12); Aspartate Amino Transferase 11 U/L (15-37); Bilirubin,Total 0.3 mg/dL (0.00-1.00); Blood Urea Nitrogen 13 mg/dL (7-18); Calcium 9.4 mg/dL (8.5-10.1); Carbon Dioxide 24 mmol/L (21-32); Chloride 96 mmol/L (98-108); Cholesterol 239 mg/dL (0-200); Estimated Glomerular Filt Rate > 60; Glucose 127 mg/dL (70-99); HDL Direct 111 mg/dL (40-60); Iron 93 ug/dL (50-170); LDL Cholesterol Calculated 118 mg/dL (<130); Osmolality Calculated 274 mOsm/kg (285-295); Potassium 5.2 mmol/L (3.5-5.1); Sodium 131 mmol/L (136-145); Total Protein 7.8 g/dL (6.4-8.2); Triglycerides 48 mg/dL (0-150)
--- OUTSIDE RECORDS SUMMARY | 2024-09-27 12:20 | XMS_ITS | Clinical Summary ---
Author Organization [facility] Address [address] [address] Care Team Providers Care Brick Pointer Name Role Phone Unavailable Primary Care Provider Unavailabl e Source Comments [facility],non-owned Affiliates and Associated Physician Practices is amultiple site organization consisting of ambulatory clinics and hospital sitesin [place], [place], [place] and [place]. This disclosure is being madepursuant to the Care Everywhere program and may not contain all information available regarding this patient. Last updated 18.[facility] [employer] Social History Tobacco Use Types Packs/Day Years [...] 2) 2011 MAMMOGRAM 02/04/2014 02/05/2012 COVID-19 VACCINE ( - 2023-2 5 season) 2024 DEPRESSION SCREENING 06/21/2024 INFLUENZA VACCINE (Season Ended) 2025 Respiratory Syncytial Virus (RSV) Vaccine Pt: or [...] to complete this topic MENINGOCOCCAL (Group B) VACC INE SHARED DECISION-MAKING Aged Out No longer eligibl e based on patient's age to complete this topic MENINGOCOCCAL GROUPS A/C/Y/W VACCINE Aged Out No longer eligible b ased on patient's age to complete this topic [...] Digital screening mammogram on 02/05/2012. PRIOR: 2010 [place], [place] FINDINGS: Computer assisted detection was utilized. The tissue density is dense. There is no significant change since the prior mammogram. ASSESSMENT: BIRADS Category 1: Negative mammogram. RECOMMENDATION: Follow up in one year. [facility] utilizes [employer] as a reminder system to notify patients of their next recommended mammogram. Procedure Note Jacey Abbott MD - 02/05/2012 EXAMINATION: Digital screening mammogram on 02/05/2012. PRIOR: 2010 [place], [place] FINDINGS: Computer assisted detection was utilized. The tissue density is dense. There is no significant change since the prior mammogram. ASSESSMENT: BIRADS Category 1: Negative mammogram. RECOMMENDATION: Follow up in one year. [facility] utilizes [employer] as a reminder system to notify patients of their next recommended mammogram. Deepika Kitchen MD MAMMO ORDERABLES from Last 3 Months or Most Recently Relevant to Health Maintenance Kesha Nicole Personal/Famil y Self 1960 KESHA NICOLE Personal/Famil y Spouse
[2024-09-29 02:54] LABS: Vitamin D 25 Hydroxy 12 ng/mL (30-100)
== END 2024-09-27 10:47 | disposition home or self-care (01) ==
LOC: CHSLAB 10:47
PROVIDERS: PCP Nurse Practitioner Family; Visit Provider Nurse Practitioner Family
DX: I10 Essential (primary) hypertension (principal); Z13.6 Encounter for screening for cardiovascular disorders; E78.5 Hyperlipidemia, unspecified; D64.9 Anemia, unspecified; Z79.899 Other long term (current) drug therapy
CPT/HCPCS: 36415; 80053; 80061; 82306; 83540; 85025

== ENCOUNTER 2024-10-09 10:00 | Outpatient (RCR) | payer BC, SELFPAY ==
--- NOTE | 2024-09-14 14:12 | OTOPEVAL1 ---
Assessment and note entered by JUAN PABLO Turner/Renée, SHYANNET OT Evaluation Information 09/14/24 Assessment Status Evaluation Subjective Information Dx: - carpal tunnel syndrome, bilateral UE - lesion of ulnar nerve, unspecified UE - palmar fascial fibromatosis - trigger finger, right ring finger Procedure 08/30/24: - Dupuytren's contracture release - right ring finger A1 barbara release - carpal tunnel release - cubital tunnel release Patient reports difficulties with using her right, dominant hand for gripping, lifting, and carrying . Reports difficulties with opening a jar, doing housework, dishes, cutting food, etc. Reported Pain Level Pain Score 3: Self Report Assessment OT Clinical Summary Patient referred to OT 2 weeks post op right dupuytren's contracture release, right ring finger a1 barbara release, carpal tunnel release, and cubital tunnel release. She presents with residual edema, stiffness, weakness, and pain that restricts return to functional use. Today a had based orthosis was fabricated to position digits III-V in extension while she is healing. She demonstrates good understanding with don/doffing the orthosis. Issued active/passive ROM HEP for improved tendon glide, reduced edema, and improved flexibility. Continued follow up indicated for progressive therapeutic exercise, splinting PRN, modalities, manual therapy, and HEP progression to facilitate improved functional hand use for ADLs. Plan of Care Interventions Therapeutic Exercise,Manual Therapy,Check Out for Orthotic/Prosthetic,Ultrasound,Paraffin OT Services Indicated Yes Treatment Frequency and 2x/week for 8 visits Duration These treatments will address the objective and functional deficits as defined above. The patient will be advanced safely and appropriately in order for the patient to progress towards his/her prior level of function. Additional exercises will be introduced and as well as a comprehensive home exercise program upon discharge, if needed, ?to ensure carryover of functional gains achieved in the clinic. This treatment plan has been reviewed and agreement upon by the patient.
--- NOTE | 2024-09-14 14:12 | OPREHPOC ---
Outpatient Therapy Plan of Care This is a Multidisciplinary Plan of Care that may contain components documented by all disciplines (PT, OT, and ST.) OT Problem 1 OT Problem #1 Knowledge Deficit OT Goal 1 Goal / Goal Update Patient to be independent with instructed materials and splint wearing schedule. Target Visit 8 OT Problem 2 OT Problem #2 Pain OT Goal 1 Goal / Goal Update Patient to be independent with non-medication pain management: - heat - ROM Target Visit 8 OT Problem 3 OT Problem #3 Impaired Range of Motion OT Goal 1 Goal / Goal Update Patient to progress functional ROM of the right hand to be able to use her dominant hand for gripping activities as measured by improving functional finger flexion to 0 cm gap when trying to make a fist. Target Visit 8 OT Problem 4 OT Problem #4 Impaired Strength OT Goal 1 Goal / Goal Update Patient to be able to complete (R) wrist strengthening with 2 lb. free weight x20 reps to increase UE strength for ADLs Target Visit 8 OT Goal 2 Goal / Goal Update Patient to be able to progress to yellow putty for technical product manager/pinch strengthening. Target Visit 8
--- NOTE | 2024-09-18 10:04 | PCOTNOTE ---
Patient called & cancelled scheduled appointment this date.
--- NOTE | 2024-10-09 10:54 | OTOPDC ---
Assessment and note entered by JUAN PABLO Turner/Renée, CHT OT Discharge Summary 10/09/24 Assessment Status Discharge Subjective Information Dx: - carpal tunnel syndrome, bilateral UE - lesion of ulnar nerve, unspecified UE - palmar fascial fibromatosis - trigger finger, right ring finger Procedure 08/30/24: - Dupuytren's contracture release - right ring finger A1 barbara release - carpal tunnel release - cubital tunnel release Patient reports improved functional use of her right hand. 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 She has returned to being able to open jars and do dishes with less difficulty. Measurements since start of care: Finger to palm measurements improved from 2-5 cm gaps to 0 cm gaps. 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 of flexion - DIP 20 deg. of hyperextension Reported Pain Level Pain Score 0: Self Report Additional Pain Score Comments No pain at rest. 1-2/10 with splint donned. Assessment OT Clinical Summary Patient referred to OT s/p right dupuytren's contracture release, right ring finger a1 barbara release, carpal tunnel release, and cubital tunnel release. She has progressed well with therapy and is back to using her hand for ADLs and gripping. Her fingers now touch her palm when making a fist. Small finger extension remained unchanged at 30 extension lag at the PIP joint. Reviewed HEP today - small finger extension stretching and putty exercises. Patient demonstrated good understanding of HEP and encouraged her to complete her HEP daily. She does admit to not doing the HEP as much as she should. D/C OT with HEP. Plan of Care OT Services Indicated No
== END 2024-10-09 12:46 | disposition home or self-care (01) ==
LOC: ANHOT 10:00
PROVIDERS: PCP Plastic Surgery; Visit Provider Plastic Surgery
DX: G56.03 Carpal tunnel syndrome, bilateral upper limbs (principal); G56.20 Lesion of ulnar nerve, unspecified upper limb; M72.0 Palmar fascial fibromatosis [Dupuytren]; M65.341 Trigger finger, right ring finger
CPT/HCPCS: 97110; 97166; 97763; L3913

== ENCOUNTER 2024-10-11 08:46 | Outpatient (CLI) | payer BC, SELFPAY ==
--- NOTE | ~2024-10-11 | MM_ITS ---
EXAMINATION: MM screening halle BI w jonathan HISTORY: Screening TECHNIQUE: Craniocaudal and mediolateral oblique 3-D tomosynthesis images were obtained and synthetic 2-D images were generated. CAD analysis was submitted and interpreted. COMPARISON: 04/18/2019 BREAST PARENCHYMAL COMPOSITION: Dense: The breasts are heterogeneously dense, which may obscure small masses FINDINGS: There is no evidence of suspicious mass, calcification, or architectural distortion to sugg est malignancy in either breast. There has been no suspicious interval change. IMPRESSION: 1. No mammographic evidence of malignancy. 2. Recommend routine screening mammography in one year. BI-RADS Category 1: Negative Reviewed, dictated and finalized at location A.
--- OUTSIDE RECORDS SUMMARY | 2024-10-11 09:20 | XMS_ITS | Clinical Summary ---
Author Organization [facility] Address [address] 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 This disclosure is being madepursuant to the Care Everywhere program and may not contain all information available regarding this patient. 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 PRIOR: 2010 [place], [place] FINDINGS: Computer assisted detection was utilized. The tissue density is dense. There is no significant change since the prior mammogram. ASSESSMENT: BIRADS Category 1: Negative mammogram. RECOMMENDATION: Follow up in one year. [facility] Breast [facility] utilizes [employer] as a reminder system to notify patients of their next recommended mammogram. Procedure Note Jacey Abbott MD - 02/05/2012 EXAMINATION: Digital screening mammogram on 02/05/2012. PRIOR: 2010 [place], [place] FINDINGS: Computer assisted detection was utilized. The tissue density is dense. There is no significant change since the prior mammogram. ASSESSMENT: BIRADS Category 1: Negative mammogram. RECOMMENDATION: Follow up in one year. [facility] Breast [facility] utilizes [employer] as a reminder system to notify patients of their next recommended mammogram. Deepika Kitchen MD MAMMO ORDERABLES Final Result from Last 3 Months or Most Recently Relevant to Health Maintenance Insurance [facility] * Guarantor: KESHA NICOLE Account Type Relation to Patient Date of Phone Billing Address Personal/Family Spouse
== END 2024-10-11 08:47 | disposition home or self-care (01) ==
LOC: CHSIMG 08:49
PROVIDERS: PCP Nurse Practitioner Family; Visit Provider Nurse Practitioner Family
DX: Z12.31 Encounter for screening mammogram for malignant neoplasm of breast (principal)
CPT/HCPCS: 77063; 77067